=== PATIENT | female | born 1940 | race Caucasian/White ===

== ENCOUNTER 2017-05-01 12:58 | Inpatient (IN) ==
[2017-05-01] MEDS ORDERED: Naloxone 0.4 MG/ML INJ IVP PRN (16:01)
[2017-05-01] MEDS ORDERED: Dextrose Gel 15 GM PO PRN ×2 (16:06)
[2017-05-01] MEDS ORDERED: D5% in Water 1,000 ML IVC PRN (16:06)
[2017-05-01] MEDS ORDERED: *HR* Dextrose 50 % in Water (Syg) 50 ML SYRINGE IVP PRN (16:06)
--- NOTE | 2017-05-01 16:14 | Internal Med History&Physical ---
Date of Encounter: 05/01/17 Time of Encounter: 16:14 Assessment and Plan (1) Metabolic encephalopathy Current visit: Yes Status: Acute Patient presented with increased confusion was likely secondary to urinary tract infection. Urine sent for culture and blood cultures have been drawn no electrolyte abnormalities ABG stable we will continue with oxygen as needed to maintain SPO2 greater than 92% 2 we will continue with antibiotics 3 obtain ABG lactate ammonia level CT of head is negative for any intracranial abnormalities 4 we will monitor neuro status 5 patient is to undergo dialysis today (2) UTI (urinary tract infection) Current visit: No Status: Acute Patient has been experiencing confusion and past 24 hours urinalysis obtained which did reveal UTI patient had been on cefepime for approximately 4 days for possible infection to right stump. We will stop cefepime will start on vancomycin as well as meropenem Urine culture blood cultures have been sent Qualifiers: Urinary tract infection type: site unspecified Hematuria presence: with hematuria Qualified Code(s): N39.0 - Urinary tract infection, site not specified; R31.9 - Hematuria, unspecified (3) Type 2 diabetes mellitus Current visit: No Status: Acute Patient is presently nothing by mouth due to altered mental status. Accu-Cheks every 6 hours with sliding scale coverage Qualifiers: Diabetes mellitus complication status: with kidney complications Diabetes mellitus complication detail: with chronic kidney disease Diabetes mellitus manager long term care insulin use: with manager long term care use Chronic kidney disease stage: on chronic dialysis Qualified Code(s): E11.22 - Type 2 diabetes mellitus with diabetic chronic kidney disease; N18.6 - End stage renal disease; Z79.4 - residential (current) use of insulin; Z99.2 - Dependence on renal dialysis (4) Atrial fibrillation Current visit: No Status: Acute Patient is in atrial fibrillation. Heart rate is greater than 100 this time. We will give her IV fluid bolus 250 x1 continue with ASA Qualifiers: Atrial fibrillation type: chronic Qualified Code(s): I48.2 - Chronic atrial fibrillation (5) End stage renal disease on dialysis Current visit: Yes Status: Acute Patient receives dialysis Monday she is not receive her dialysis today. Consulted nephrology patient to get dialysis today as well as tomorrow We will monitor intake and output daily weights We will avoid nephrotoxins (6) DVT prophylaxis Current visit: Yes Status: Acute Heparin subcutaneous Internal Medicine - H&P: HPI Chief complaint: AMS Admitted From: Emergency Dept Plans for Post Hospital Care: Home History of present illness: Ms. Barrientos is a 76 year old female PMH of ESRD AFIB CHF CAD DM GERD HTN HI Information obtained from ho is at bedside dt to patent altered mental state. The patient has been receiving cefepime for a possible infection to R stump incision. She started ATB last . She has had no fever chills , she has had a decrease appetite. This am the states the patient was confused, unaware of surroundings and attempting to get out of the bed . She is unable to walk dt recent amputation. The became concern and called squad. She was taken to to [facility] for evaluation. IN the ED labwork revealed no leukocytosis, BUN 15 creatinine 7.78 bicarb 18. CXR with vascular congestion.Head CT negative Urine obtained which sample was thick white purulent drainage . Urinalysis revealed large amount of blood and leuk esterase. urine sent for culture blood culture obtained , given vancomycin Transferred to this facility for further treatment. Presently the patient is moaning does not respond verbal stimuli. Lung sounds are clear, heart sounds irreg S1S2 no rubs click or gallops noted. Abd soft nontender, R stump with incision well approx, R distal end red, with small amount clear drainage. She is hemodynamically stable at this time I reviewed this case with DR Felder who agrees with plan Past Med Surg Social Fam HX - Past Medical History Medical history: arthritis, atrial fibrillation, cardiomyopathy, CHF, coronary artery disease, diabetes, dialysis, GERD, hyperlipidemia, migraine, myocardial infarction, peripheral artery disease, renal disease, other Psychiatric history: anxiety - Past Surgical History Surgical History: angioplasty/stent, appendectomy, cholecystectomy, hysterectomy , orthopedic, other, other - Social History Smoking Status: Never smoker Smokeless Tobacco Status: No Alcohol use: none Drug use: none - Family History Father Living Status: Cause of : heart disease Mother Living Status: Cause of : esophageal Cancer Internal Medicine - H&P: Meds Aspirin 325 mg PO DAILY 08/17/15 [History] Cephalexin [Keflex] 250 mg PO DAILY 08/17/15 [History] Clopidogrel [Plavix] 75 mg PO DAILY 08/17/15 [History] Gabapentin [Neurontin] 300 mg PO TID 08/17/15 [History] Pravastatin Sodium [Pravachol] 40 mg PO HS 08/17/15 [History] Buspirone HCl [Buspar] 10 mg PO BID 05/01/17 [History] Cefepime HCl/Dextrose, Iso-Osm [Cefepime 2 gm Injection] 2 gm IV DAILY 05/01/17 [History] Cholecalciferol (D-3) [Vitamin D] 2,000 unit PO DAILY 05/01/17 [History] Droxidopa [Northera] 600 mg PO TID 05/01/17 [History] FentaNYL PATCH [Duragesic] 12 mcg TD Q72H 05/01/17 [History] FentaNYL PATCH [Duragesic] 25 mcg TD Q72H 05/01/17 [History] HYDROcodone/Acet 5/325 mg [Juniata 5-325 mg] 1 tab PO TID PRN 05/01/17 [History] Insulin ASPART [NovoLOG] 3 - 12 unit SQ TIDWM 05/01/17 [History] Insulin Aspart Prot/Insuln Asp [Novolog Mix 70-30 Vial] 30 - 40 unit SQ QAM AND QHS 05/01/17 [History] L. Acidophilus/Pectin, Salley [Acidophilus Probiotic Capsule] 1 each PO DAILY [History] Pantoprazole Sodium [Protonix] 40 mg PO DAILY 05/01/17 [History] Zinc Sulfate [Orazinc] 110 mg PO DAILY 05/01/17 [History] Allergies doxycycline Allergy (Verified 05/01/17 09:06) Hives levofloxacin [From Levaquin] Allergy (Verified 05/01/17 09:06) Swelling of Lip/Tongue/Throat prednisone Allergy (Verified 05/01/17 09:06) See Comments made her cold/ and made her sweat acetaminophen [From Percocet] Adverse Reaction (Verified 04/17/17 08:32) Vomiting azithromycin [From Zithromax Z-Henrry] Adverse Reaction (Verified 05/01/17 09:06) Vomiting Oxycodone [From Percocet] Adverse Reaction (Verified 05/01/17 09:06) Vomiting phenazopyridine [From Pyridium] Adverse Reaction (Verified 05/01/17 09:06) Rash Ybmdhuk-Ckw-Ite Reductase Inhibitor [Statins] Adverse Reaction (Verified 09:06) Back Pain ROS unobtainable: due to mental status All Systems PM: A 10-system review of systems was performed and is negative for pertinent findings except as documented above in the HPI. - Constitutional Vitals: Temp Pulse Resp BP Pulse Ox 98.4 F 113 19 100/75 93 05/01/17 15:13 05/01/17 15:13 05/01/17 15:13 05/01/17 15:13 05/01/17 15:13 General appearance: Present: A&O X 0 - Head Head exam: Present: atraumatic, normocephalic - Eye Eye exam: Present: PERRL, conjuntiva pink, sclera anicteric Pupils: Present: PERRL - Neck Neck exam general surgery: Present: supple, trachea midline. Absent: lymphadenopathy - Respiratory Respiratory exam: Present: CTAB. Absent: accessory muscle use, rales, rhonchi, wheezes - Cardiovascular Cardiovascular exam: Present: RRR, +S1, +S2. Absent: diastolic murmur, gallop, rubs, systolic murmur - GI/Abdominal GI/Abdominal exam: Present: normal bowel sounds, soft, no peritoneal signs. Absent: distended, tenderness - Extremities Exam Extremities exam: Present: warm, radial pulses palpable and symetrical. Absent : calf tenderness, cyanotic, pedal edema - Neurological Exam Neurological exam: Present: CN II-XII intact, oriented X3, no focal deficits. Absent: pronater drift, facial droop, speech deficit - Skin Skin exam: Present: dry, intact Internal Med - H&P Results - Labs Labs: Lab work per psych ER CBC WBC 9.8 hemoglobin 10.6 hematocrit 34.8 platelets 185 Chemistry sodium 136 potassium 4.3 chloride 95 bicarbonate 18 BUN 54 creatinine 7.78 glucose 133
[2017-05-01] MEDS ORDERED: Vancomycin 750 MG in D5% in Water 250 ML IVPB ONE (17:00)
--- NOTE | 2017-05-01 17:14 | Event Note ---
Date of Encounter: 05/01/17 Time of Encounter: 17:13 Patient seen briefly for dialysis needs. Patient in with UTI and AMS. Will perform HD today and tomorrow. No UF today Full consult to follow.
[2017-05-01] MEDS ORDERED: 0.9 % Sodium Chloride 250 ML IVC PRN (17:34)
[2017-05-01] MEDS ORDERED: *HR* Heparin 10,000 UNIT/10 ML VIAL IV PRN (17:34)
[2017-05-01] MEDS: *HR* Heparin 5,000 UNIT/ML VIAL SQ SCH (17:44)
[2017-05-01] MEDS ORDERED: 0.9 % Sodium Chloride 1,000 ML PRIME SCH (17:45)
[2017-05-01 18:27] LABS: ABG Base Excess -2.9 mEq/L (-2.0 to 3.0); ABG HCO3 21.9 mEQ/L (21-27); ABG Oxygen Saturation 94 % (95-98); ABG PCO2 37 mmHg (35-45); ABG PH 7.38 pH Units (7.32-7.45); ABG PO2 74 mmHg (85-104); Blood Gas FiO2 21 %
[2017-05-01] MEDS ORDERED: Meropenem 500 MG in 0.9 % Sodium Chloride Mini Bag 100 ML IVPB SCH (18:30)
[2017-05-01 18:53] LABS: Hepatitis B Surface Antigen Nonreactive (Nonreactive)
[2017-05-01 19:01] LABS: Hepatitis B Surface Antibody 0.29 mIU/mL
[2017-05-01] MEDS ORDERED: 0.9 % Sodium Chloride 2,000 ML ONE (19:16)
[2017-05-01] MEDS: Insulin LISPRO 300 UNITS/3 ML VIAL SQ SCH (19:43)
[2017-05-01] MEDS ORDERED: NON-FORMULARY MEDICATION 1 EACH EACH (Cefepime Hcl/Dextrose, Iso-Osm [Cefepime 2 Gm Inject IV SCH (22:00)
[2017-05-01] MEDS ORDERED: Cefepime HCl 2,000 MG in D5% in Water (Mini-Bag+) 100 ML IVPB SCH (23:00)
[2017-05-02] MEDS: Insulin LISPRO 300 UNITS/3 ML VIAL SQ SCH ×3 (00:07→12:42)
[2017-05-02 04:27] LABS: Basophils % 0.4 %; Eosinophils # 0.2 K/mcL (0.0-0.6); Eosinophils % 2.2 %; Hematocrit 28.7 % (35.3-44.9); Hemoglobin 8.8 g/dL (11.5-15.4); Immature Granulocytes % 0.4 % (0-4); Lymphocytes # 0.6 K/mcL (0.6-4.6); Lymphocytes % 6.6 %; Mean Corpuscular HGB Conc 30.7 g/dL (31.6-35.5); Mean Corpuscular Hemoglobin 30.8 pg (28.0-33.3); Mean Corpuscular Volume 100.3 fL (83.0-100.0); Mean Platelet Volume 11.6 fL (9.4-12.4); Monocytes # 0.9 K/mcL (0.0-1.3); Monocytes % 10.3 %; Neutrophils # 6.7 K/mcL (1.6-8.9); Platelet Count 170 K/mcL (140-400); Red Blood Count 2.86 M/mcL (3.82-4.97); Red Cell Distribution Width 17.6 % (11.5-14.5); Segmented Neutrophils % 80.1 %
[2017-05-02 04:42] LABS: Calcium 8.7 mg/dL (8.6-10.8); Potassium 4.1 mEq/L (3.5-4.5)
[2017-05-02] MEDS: *HR* Heparin 5,000 UNIT/ML VIAL SQ SCH ×2 (06:47→18:07)
[2017-05-02] MEDS ORDERED: 0.9 % Sodium Chloride 250 ML IVC PRN (08:08)
[2017-05-02] MEDS ORDERED: *HR* Heparin 10,000 UNIT/10 ML VIAL IV PRN (08:08)
[2017-05-02] MEDS ORDERED: Cefepime HCl 1,000 MG in D5% in Water (Mini-Bag+) 100 ML IVPB ONE (08:24)
[2017-05-02] MEDS ORDERED: Vancomycin (wt based) 1,000 MG VIAL IVPB SCH (09:00)
--- NOTE | 2017-05-02 09:57 | Nephrology Progress Note ---
Date of Encounter: 05/02/17 Time of Encounter: 09:54 - Assessment and Plan (1) End stage renal disease on dialysis Current Visit: Yes Status: Acute Getting HD today Plan for HD again tomorrow Strict I/Os Avoid nephrotoxins if possible (2) Metabolic encephalopathy Current Visit: Yes Status: Acute per primary team (3) UTI (urinary tract infection) Current Visit: No Status: Acute per primary team Qualifiers: Urinary tract infection type: site unspecified Hematuria presence: with hematuria Qualified Code(s): N39.0 - Urinary tract infection, site not specified; R31.9 - Hematuria, unspecified Subjective Principal diagnosis: ESRD on dialysis, AMS Interval history: Patient seen and examined in dialysis. Doesn't open eyes or respond to my voice ; frequent jerking of arms and upper body. Objective - Vital Signs Vital signs: Vital Signs Temp Pulse Resp BP Pulse Ox 05/02/17 09:15 148/74 05/02/17 09:00 140/52 05/02/17 08:45 114/47 05/02/17 08:30 98/43 05/02/17 08:15 101/56 05/02/17 08:00 99/43 05/02/17 07:45 101.6 F H 18 109/93 05/02/17 04:21 99.1 F 100 18 100 05/01/17 23:39 98.2 F 78 18 92/58 96 05/01/17 20:46 98.3 F 20 124/45 05/01/17 20:45 116/61 05/01/17 20:30 118/42 05/01/17 20:15 133/33 05/01/17 20:00 130/63 05/01/17 19:45 149/59 05/01/17 19:30 135/44 05/01/17 19:15 134/38 05/01/17 19:00 159/60 05/01/17 18:45 98.3 F 20 145/51 05/01/17 17:16 98.3 F 120 22 130/78 100 05/01/17 15:13 98.4 F 113 19 100/75 93 Intake and Output 05/01/17 05/02/17 05/02/17 23:59 07:59 15:59 Intake Total 850 / 850 700 / 700 Output Total 600 / 600 Balance 250 / 250 700 / 700 Intake: IV Fluids 250 / 250 100 / 100 Maxipime 2,000 MG In 100 / 100 Dextrose 5% (Minibag+) 100 ML 100 ML @ 200 mls/ hr IVPB DAILY [facility] Rx#: [id number] Vancocin 750 MG In 250 / 250 Dextrose 5% 250 ML @ 166. 667 mls/hr IVPB ONCE ONE Rx#:[id number] Oral 0 / 0 0 / 0 Intake, Rinseback and 600 / 600 600 / 600 Flushes Output: Urine 0 / 0 Total Dialysis (HD) 600 / 600 Output Other: Stool Size Small Stool Consistency soft Stool Color Brown # Bowel Movement Diapers 1 Weight 120.4 kg Blood Glucose* 173 141 Hemodialysis Net Fluid 0 0 964 Removed (mL) - General Appearance General appearance: Present: obese, chronically ill EENT: Present: ATNC Neck: Present: supple Respiratory: Present: clear (decreased throughout) Cardiology: Present: edema, normal S1, normal S2 Dialysis Vascular Access: Venous Catheter Gastrointestinal: Present: no tenderness, obese Integumentary: Present: warm and dry Neurologic: Present: obtunded - Lab 05/02/17 04:14 05/02/17 04:14 Most recent lab results ABG pH 7.38 pH Units (7.32-7.45) 05/01/17 18:17 ABG pCO2 37 mmHg (35-45) 05/01/17 18:17 ABG pO2 74 mmHg (85-104) L 05/01/17 18:17 ABG HCO3 21.9 mEQ/L (21-27) 05/01/17 18:17 ABG O2 Saturation 94 % (95-98) L 05/01/17 18:17 Calcium 8.7 mg/dL (8.6-10.8) 05/02/17 04:14 Magnesium 2.0 mg/dL (1.6-2.6) 05/02/17 04:14 Consult Discharge Plan - Plan Referrals: NO,PCP [Primary Care Provider] - (patient will like go to ECF)
[2017-05-02] MEDS ORDERED: 0.9 % Sodium Chloride 2,000 ML ONE (10:10)
[2017-05-02] MEDS: Pantoprazole 40 MG VIAL IVP SCH (11:21)
[2017-05-02] MEDS ORDERED: Vancomycin 1,500 MG in D5% in Water 250 ML IVPB ONE (13:55)
--- NOTE | 2017-05-02 14:19 | Internal Med Progress Note ---
Date of Encounter: 05/02/17 Time of Encounter: 09:00 - Assessment and plan (1) UTI (urinary tract infection) Current Visit: No Status: Acute Assessment and plan: Patient has chronic UTI. Urine analysis suggests a UTI. However, urine culture negative, possibly due to patient is on antibiotics. - Will continue Vanco and cefepime treatment. - F/U blood culture (send in [facility]) Qualifiers: Urinary tract infection type: site unspecified Hematuria presence: with hematuria Qualified Code(s): N39.0 - Urinary tract infection, site not specified; R31.9 - Hematuria, unspecified (2) Atrial fibrillation Current Visit: No Status: Acute Assessment and plan: Rate is generally controlled. Pt is on high dose ASA and plavix for CVA prophylaxis. On hold now because of nothing by mouth Qualifiers: Atrial fibrillation type: chronic Qualified Code(s): I48.2 - Chronic atrial fibrillation (3) Metabolic encephalopathy Current Visit: Yes Status: Acute Assessment and plan: Probably due to severe UTI as the patient's mentioned that she has similar problem last time with UTI. - We will continue antibiotic. - Follow up blood culture. - Continue supportive treatment. - CT abd to r/o stone or obstruction Patient is at high risk because of acute onset altered mental status. She is also on vancomycin, need close monitoring (4) DVT prophylaxis Current Visit: Yes Status: Acute (5) End stage renal disease on dialysis Current Visit: Yes Status: Acute Assessment and plan: On HD, nephrology is on case - Time Spent With Patient Greater than 35 minutes - Subjective Interval history: Patient is 76-year-old female admitted for altered mental status. Her past medical history is significant for end-stage renal disease on hemodialysis, chronic UTI on maintainance dose of Keflex, A Fib, CHF, CAD, DM, HTN. Patient was seen and examined. She is still confused, occasionally opening eyes , not talking, had a fever today with temperature 101.6. Per patient's , she is more calm down today. Blood pressure and heart rate acceptable. Patient's also mentioned that she has similar mental status changes due to UTI previously. Will continue vanco and cefepime treatment. Lactate and ammonia level are within normal limits. Since patient's altered mental status, she is at high risk for aspiration, intubation option discussed with patient's . Her said she does not want to be intubated. Patient's agree to put a code status as DNR/ DNI and said this is pt's wishes. Patient is very sick with multiple chronic comorbidities, prognosis is guarded. - Constitutional Vitals: Temp Pulse Resp BP Pulse Ox 101.6 F H 100 18 156/83 100 05/02/17 10:25 05/02/17 04:21 05/02/17 10:25 05/02/17 10:25 05/02/17 04:21 General appearance: Present: A&O X 0 - Head Head exam: Present: atraumatic, normocephalic - Eye Eye exam: Present: PERRL, conjuntiva pink, sclera anicteric Pupils: Present: PERRL - Neck Neck exam general surgery: Present: supple, trachea midline. Absent: lymphadenopathy - Respiratory Respiratory exam: Present: CTAB. Absent: accessory muscle use, rales, rhonchi, wheezes - Cardiovascular Cardiovascular exam: Present: RRR, +S1, +S2. Absent: diastolic murmur, gallop, rubs, systolic murmur - GI/Abdominal GI/Abdominal exam: Present: normal bowel sounds, soft, no peritoneal signs. Absent: distended, tenderness - Extremities Exam Extremities exam: Present: warm, radial pulses palpable and symetrical. Absent : calf tenderness, cyanotic, pedal edema Additional comments: Rt s/p BKA - Neurological Exam Neurological exam: Present: CN II-XII intact, oriented X3, no focal deficits. Absent: pronater drift, facial droop, speech deficit - Skin Skin exam: Present: dry, intact Internal Medicine: Result - Labs CBC & Chem 7: 05/02/17 04:14 05/02/17 04:14 Labs: Short CBC 05/02/17 Range/Units 04:14 WBC 8.4 (4.3-11.1) K/mcL Hgb 8.8 L D (11.5-15.4) g/dL Hct 28.7 L (35.3-44.9) % Plt Count 170 (140-400) K/mcL Neutrophils # 6.7 (1.6-8.9) K/mcL BMP 05/02/17 04:14 Sodium 135 L Potassium 4.1 Chloride 98 Carbon Dioxide 22 BUN 43 H D Creatinine 6.52 H Glucose 192 H Calcium 8.7 Cardiac Enzymes 05/01/17 05/02/17 Range/Units 17:55 01:01 Troponin I 0.05 H* 0.04 H* (0-0.03) ng/mL - ABG Interpretation ABG results: ABG ABG pH 7.38 pH Units (7.32-7.45) 05/01/17 18:17 ABG pCO2 37 mmHg (35-45) 05/01/17 18:17 ABG pO2 74 mmHg (85-104) L 05/01/17 18:17 ABG O2 Saturation 94 % (95-98) L 05/01/17 18:17 Consult Discharge Plan - Plan Referrals: NO,PCP [Primary Care Provider] - (patient will like go to [facility])
[2017-05-02] MEDS ORDERED: 0.9 % Sodium Chloride 1,000 ML IVC SCH (15:30)
[2017-05-02] MEDS: Cefepime HCl 1,000 MG in D5% in Water (Mini-Bag+) 100 ML IVPB SCH (17:41)
[2017-05-02] MEDS: INSULIN ASPART SQ SCH (17:54)
[2017-05-02] MEDS ORDERED: Patient Taking Own Medication 1 EACH SQ SCH (18:00)
[2017-05-03] MEDS: INSULIN ASPART SQ SCH ×4 (01:03→17:14)
[2017-05-03 04:46] LABS: Basophils % 0.6 %; Eosinophils # 0.2 K/mcL (0.0-0.6); Eosinophils % 2.5 %; Hematocrit 32.4 % (35.3-44.9); Hemoglobin 9.5 g/dL (11.5-15.4); Immature Granulocytes % 0.3 % (0-4); Lymphocytes # 0.8 K/mcL (0.6-4.6); Lymphocytes % 12.4 %; Mean Corpuscular HGB Conc 29.3 g/dL (31.6-35.5); Mean Corpuscular Hemoglobin 30.4 pg (28.0-33.3); Mean Corpuscular Volume 103.5 fL (83.0-100.0); Mean Platelet Volume 11.8 fL (9.4-12.4); Monocytes % 14.9 %; Neutrophils # 4.5 K/mcL (1.6-8.9); Platelet Count 165 K/mcL (140-400); Red Blood Count 3.13 M/mcL (3.82-4.97); Red Cell Distribution Width 17.6 % (11.5-14.5); Segmented Neutrophils % 69.3 %
[2017-05-03 05:06] LABS: Calcium 9.3 mg/dL (8.6-10.8); Potassium 4.1 mEq/L (3.5-4.5)
[2017-05-03] MEDS: *HR* Heparin 5,000 UNIT/ML VIAL SQ SCH ×2 (07:02→16:58)
[2017-05-03] MEDS: Pantoprazole 40 MG VIAL IVP SCH (07:55)
[2017-05-03] MEDS ORDERED: *HR* Heparin 10,000 UNIT/10 ML VIAL IV PRN (08:24)
[2017-05-03] MEDS ORDERED: 0.9 % Sodium Chloride 250 ML IVC PRN (08:24)
--- NOTE | 2017-05-03 10:11 | Nephrology Progress Note ---
Date of Encounter: 05/03/17 Time of Encounter: 10:09 - Assessment and Plan (1) End stage renal disease on dialysis Current Visit: Yes Status: Acute HD MWF. She seems to be tolerating HD well via a right IJ tunneled catheter. Will continue HD per home prescription and as needed. Renal dose medications. Renal diet. (2) UTI (urinary tract infection) Current Visit: No Status: Acute Patient on vancomycin and cefepime. Management per primary team. Qualifiers: Urinary tract infection type: site unspecified Hematuria presence: with hematuria Qualified Code(s): N39.0 - Urinary tract infection, site not specified; R31.9 - Hematuria, unspecified (3) Anemia Current Visit: Yes Status: Acute Check iron stores. May need to resume kale. Monitor for bleeding. Qualifiers: Qualified Code(s): D64.9 - Anemia, unspecified (4) Metabolic encephalopathy Current Visit: Yes Status: Acute Attributed to UTI. Monitor for improvement. Subjective Principal diagnosis: ESRD on dialysis, AMS Interval history: Patient seen on dialysis. She is asleep and tolerating dialysis. Objective - Vital Signs Vital signs: Vital Signs Temp Pulse Resp BP Pulse Ox 05/03/17 06:57 98.6 F 102 17 101/46 91 05/03/17 05:58 99.5 F 102 16 95 05/02/17 23:28 98.7 F 102 16 102/45 92 05/02/17 19:46 98.4 F 102 18 113/54 92 05/02/17 16:49 98.7 F 72 18 147/74 92 05/02/17 10:25 101.6 F H 18 156/83 05/02/17 10:15 127/73 Intake and Output 05/02/17 05/03/17 05/03/17 23:59 07:59 15:59 Intake Total 100 / 100 0 / 0 Output Total 0 / 0 Balance 100 / 100 0 / 0 Intake: IV Fluids 100 / 100 Maxipime 1,000 MG In 100 / 100 Dextrose 5% (Minibag+) 100 ML 100 ML @ 200 mls/ hr IVPB Q24H [facility] Rx#: [id number] Oral 0 / 0 Output: Catheter 0 / 0 Other: Stool Size Smear Stool Color Brown # Bowel Movement Diapers 1 Blood Glucose* 147 157 - General Appearance General appearance: Present: well-developed, well-nourished, obese EENT: Present: ATNC Respiratory: Present: clear Cardiology: Present: edema (trace edema), regular rate Gastrointestinal: Present: no tenderness Integumentary: Present: warm and dry - Lab 05/03/17 04:11 05/03/17 04:11 Most recent lab results ABG pH 7.38 pH Units (7.32-7.45) 05/01/17 18:17 ABG pCO2 37 mmHg (35-45) 05/01/17 18:17 ABG pO2 74 mmHg (85-104) L 05/01/17 18:17 ABG HCO3 21.9 mEQ/L (21-27) 05/01/17 18:17 ABG O2 Saturation 94 % (95-98) L 05/01/17 18:17 Calcium 9.3 mg/dL (8.6-10.8) 05/03/17 04:11 Magnesium 2.0 mg/dL (1.6-2.6) 05/02/17 04:14 Consult Discharge Plan - Plan Referrals: NO,PCP [Primary Care Provider] - (patient will like go to ECF)
[2017-05-03] MEDS ORDERED: 0.9 % Sodium Chloride 500 ML ONE ×2 (13:11→15:12)
[2017-05-03] MEDS: Ondansetron 4 MG/2 ML VIAL IVP PRN (13:42)
[2017-05-03] MEDS ORDERED: *HR* Promethazine 25 MG/ML VIAL IVP PRN (13:52)
[2017-05-03] MEDS ORDERED: 0.9 % Sodium Chloride 250 ML IVC ONE ×2 (15:06→16:42)
--- NOTE | 2017-05-03 15:30 | Internal Med Progress Note ---
Date of Encounter: 05/03/17 Time of Encounter: 10:00 - Assessment and plan (1) UTI (urinary tract infection) Current Visit: No Status: Acute Assessment and plan: Patient has chronic UTI. Urine analysis suggests a UTI. Per family, purulent urine has been drained upon Bruner insertion. However, urine culture negative, possibly due to patient is on antibiotics (pt started cefepime since last ). - Will continue Vanco and cefepime treatment. - Blood culture also shows negative (Preliminary result). Qualifiers: Urinary tract infection type: site unspecified Hematuria presence: with hematuria Qualified Code(s): N39.0 - Urinary tract infection, site not specified; R31.9 - Hematuria, unspecified (2) Atrial fibrillation Current Visit: No Status: Acute Assessment and plan: Rate is slightly get up to 120-140 today. Pt is on high dose ASA and plavix for CVA prophylaxis. will give IVF to optimize volume status. No BB or cardizem now b/o lower side BP. Cont closely monitoring. Qualifiers: Atrial fibrillation type: chronic Qualified Code(s): I48.2 - Chronic atrial fibrillation (3) Metabolic encephalopathy Current Visit: Yes Status: Acute Assessment and plan: Probably due to severe UTI as the patient's mentioned that she has similar problem last time with UTI. - We will continue antibiotic. - Continue supportive treatment. - CT abd shows no kidney/ureter stone or obstruction - Will obtain EEG to r/o seizure - Repeat CT head negative - Will consult neurology - May start tube feeding through NG tube. Patient is at high risk because of acute onset altered mental status. She is also on vancomycin, need close monitoring (4) DVT prophylaxis Current Visit: Yes Status: Acute Assessment and plan: Heparin sc (5) End stage renal disease on dialysis Current Visit: Yes Status: Acute Assessment and plan: On HD, nephrology is on case - Time Spent With Patient Greater than 35 minutes - Subjective Interval history: Patient is 76-year-old female admitted for altered mental status. Her past medical history is significant for end-stage renal disease on hemodialysis, chronic UTI on maintainance dose of Keflex, A Fib, CHF, CAD, DM, HTN. Patient was seen and examined. She is still confused, occasionally opening eyes , not talking. Can swallow secretions and seems has intact gag reflex. Since mental status not improve although treatment, will obtain EEG to r/o seizure. Will consult neurology. Repeat CT head negative. D/W family, will start NG tube feeding to maintain nutrition and administrate po medications. Pt is still at high risk b/o acute AMS. Prognosis is guarding. - Constitutional Vitals: Temp Pulse Resp BP Pulse Ox 98.0 F 140 19 86/47 100 05/03/17 12:56 05/03/17 15:10 05/03/17 15:10 05/03/17 15:10 05/03/17 12:56 General appearance: Present: A&O X 0 - Head Head exam: Present: atraumatic, normocephalic - Eye Eye exam: Present: PERRL, conjuntiva pink, sclera anicteric Pupils: Present: PERRL - Neck Neck exam general surgery: Present: supple, trachea midline. Absent: lymphadenopathy - Respiratory Respiratory exam: Present: CTAB. Absent: accessory muscle use, rales, rhonchi, wheezes - Cardiovascular Cardiovascular exam: Present: RRR, +S1, +S2. Absent: diastolic murmur, gallop, rubs, systolic murmur - GI/Abdominal GI/Abdominal exam: Present: normal bowel sounds, soft, no peritoneal signs. Absent: distended, tenderness - Extremities Exam Extremities exam: Present: warm, radial pulses palpable and symetrical. Absent : calf tenderness, cyanotic, pedal edema Additional comments: Right leg s/p BKA - Neurological Exam Neurological exam: Present: CN II-XII intact, no focal deficits (Can move four limbs). Absent: facial droop - Skin Skin exam: Present: dry, intact Internal Medicine: Result - Labs CBC & Chem 7: 05/03/17 04:11 05/03/17 04:11 Labs: Short CBC 05/03/17 Range/Units 04:11 WBC 6.5 (4.3-11.1) K/mcL Hgb 9.5 L (11.5-15.4) g/dL Hct 32.4 L (35.3-44.9) % Plt Count 165 (140-400) K/mcL Neutrophils # 4.5 (1.6-8.9) K/mcL BMP 05/03/17 04:11 Sodium 136 Potassium 4.1 Chloride 99 Carbon Dioxide 22 BUN 29 H D Creatinine 5.20 H Glucose 162 H Calcium 9.3 - ABG Interpretation ABG results: ABG ABG pH 7.38 pH Units (7.32-7.45) 05/01/17 18:17 ABG pCO2 37 mmHg (35-45) 05/01/17 18:17 ABG pO2 74 mmHg (85-104) L 05/01/17 18:17 ABG O2 Saturation 94 % (95-98) L 05/01/17 18:17 - Impressions Impressions Abdomen/Pelvis CT 05/02/17 14:45 IMPRESSION: Evaluation is limited by motion artifact. No obstructing renal or ureteral stone. Small right pleural effusion and patchy opacity in the lung bases, similar to previous exam. D/ / Deepika Singh MD / Deepika Singh MD Interpreting Provider: Deepika Singh MD Head CT 05/03/17 11:33 IMPRESSION: 1. Stable CT scan of the brain with no acute intracranial abnormality. D/ / Adalberto Ibarra MD / Adalberto Ibarra MD Interpreting Provider: Adalberto Ibarra MD Consult Discharge Plan - Plan Referrals: NO,PCP [Primary Care Provider] - (patient will like go to [facility])
[2017-05-03] MEDS: Cefepime HCl 1,000 MG in D5% in Water (Mini-Bag+) 100 ML IVPB SCH (15:59)
[2017-05-03] MEDS: 0.9 % Sodium Chloride 1,000 ML IVC SCH (16:07)
--- NOTE | 2017-05-03 18:25 | Pulmonology Consult Note ---
Date of Encounter: 05/03/17 Time of Encounter: 18:05 Assessment and Plan (1) CHF (congestive heart failure) Current Visit: Yes Status: Acute Neuro: Acute altered mental status of unclear cause. No evidence of acute infection. No history of liver disease or elevated ammonia. End-stage renal disease with hemodialysis but no evidence of uremia. CT head showed no acute intracranial abnormalities. Neurology has been consulted by internal medicine service. Cardiovascular: History of cardiomyopathy. Exam shows significant edema in all extremities. Bedside ultrasound obtained which suggested LV hypokinesis. Suspect some degree of congestive heart failure. Echo ordered for tomorrow. Plan per discussion with nephrology to placed on HD circuit again with goal of further volume removal. Primary reason for patient transferred ICU was for hypotension. Blood pressure cuff was refitted for patient's arm and normal blood pressure was obtained. This is compared to blood pressure obtained around the wrist as was done on board. Repeat blood pressure of wrist showed hypertension which is likely spurious but consistent with prior readings. At this point, patient appears to have normal blood pressure and shows no evidence of poor perfusion. No plan for further fluid boluses. Pulmonary: Review of CT abdomen is suggestive of pulmonary edema with small effusions. Otherwise patient on sliding well and in no respiratory distress. Nephro: End-stage renal disease with hemodialysis dependence. Bruner in place with scant urine in the bag. Underwent intermittent hemodialysis today. No significant I abnormalities at this point. Plan per discussion with nephrology for volume removal on HD tomorrow. GI: Report of nausea from from internal medicine service and patient did receive some Phenergan. Plan keep patient nothing by mouth due to mental status ID: Sterile pyuria from UA obtained in [facility] ED. No leukocytosis patient is afebrile. No clear source of infection at this time. Patient is currently receiving empiric cefepime and vancomycin. These will likely be discontinued but will hold delay decision for now pending elucidation of other issues. HO: Chronic anemia related to this EKG. No indication for transfusion at this time. Endocrine: History of type 2 diabetes. Continue with sliding scale. Musculoskeletal: Status post right lower extremity amputation. Also noted to have stage II sacral decubitus ulcer. Disposition: Patient is currently in ICU overnight. Qualifiers: Congestive heart failure type: unspecified congestive heart failure type Congestive heart failure chronicity: acute on chronic Qualified Code(s): I50.9 - Heart failure, unspecified (2) End stage renal disease on dialysis Current Visit: Yes Status: Chronic (3) Metabolic encephalopathy Current Visit: Yes Status: Acute (4) Atrial fibrillation Current Visit: No Status: Chronic Qualifiers: Atrial fibrillation type: chronic Qualified Code(s): I48.2 - Chronic atrial fibrillation (5) Type 2 diabetes mellitus Current Visit: No Status: Acute Qualifiers: Diabetes mellitus complication status: with kidney complications Diabetes mellitus complication detail: with chronic kidney disease Diabetes mellitus long-term insulin use: with rodent exterminator use Chronic kidney disease stage: on chronic dialysis Qualified Code(s): E11.22 - Type 2 diabetes mellitus with diabetic chronic kidney disease; N18.6 - End stage renal disease; Z79.4 - [facility] (current) use of insulin; Z99.2 - Dependence on renal dialysis History of Present Illness Consult date: 05/03/17 Requesting physician: Thomas Ramirez Reason for consult: other (Altered mental status) Chief complaint: Altered mentation History of present illness: 76-year-old female transferred to ICU by primary internal medicine service for persistent hypotension following dialysis today. Patient also has altered mentation since her admission on April 29. Was initially evaluated in [facility] ER for altered mental status. Patient is end-stage renal disease with hemodialysis dependence and an uric, however UA was obtained at [place] which showed pyuria. This is the presumed cause of patient's altered mentation she was transferred to this facility. In spite of broad-spectrum antibiotics, patient's mental status is failed to improve. Today patient underwent routine hemodialysis with approximately 3.6 L net fluid removal. Afterwards patient was noted to have persistent recordings of hypertension while in the internal medicine service. Patient received multiple boluses of crystalloid without any change. Patient remains minimally interactive. He is unable to contribute any information to the history of present illness. CT head has been obtained which was unremarkable. EEG has also been obtained which is pending interpretation by neurology. Past Med Surg Social Fam HX - Past Medical History Medical history: arthritis, atrial fibrillation, cardiomyopathy, CHF, coronary artery disease, diabetes, dialysis, GERD, hyperlipidemia, migraine, myocardial infarction, peripheral artery disease, renal disease, other Psychiatric history: anxiety - Past Surgical History Surgical History: angioplasty/stent, appendectomy, cholecystectomy, hysterectomy , orthopedic, other, other - Social History Smoking Status: Never smoker Smokeless Tobacco Status: No Alcohol use: none Drug use: none - Family History Father Living Status: Cause of : heart disease Mother Living Status: Cause of : esophageal Cancer Medications and Allergies Aspirin 325 mg PO DAILY 08/17/15 [History] Cephalexin [Keflex] 250 mg PO DAILY 08/17/15 [History] Clopidogrel [Plavix] 75 mg PO DAILY 08/17/15 [History] Gabapentin [Neurontin] 300 mg PO TID 08/17/15 [History] Pravastatin Sodium [Pravachol] 40 mg PO HS 08/17/15 [History] Buspirone HCl [Buspar] 10 mg PO BID 05/01/17 [History] Cefepime HCl/Dextrose, Iso-Osm [Cefepime 2 gm Injection] 2 gm IV DAILY 05/01/17 [History] Cholecalciferol (D-3) [Vitamin D] 2,000 unit PO DAILY 05/01/17 [History] Droxidopa [Northera] 600 mg PO TID 05/01/17 [History] FentaNYL PATCH [Duragesic] 12 mcg TD Q72H 05/01/17 [History] FentaNYL PATCH [Duragesic] 25 mcg TD Q72H 05/01/17 [History] HYDROcodone/Acet 5/325 mg [[place] 5-325 mg] 1 tab PO TID PRN 05/01/17 [History] Insulin ASPART [NovoLOG] 3 - 12 unit SQ TIDWM 05/01/17 [History] Insulin Aspart Prot/Insuln Asp [Novolog Mix 70-30 Vial] 30 - 40 unit SQ QAM AND QHS 05/01/17 [History] L. Acidophilus/Pectin, [place] [Acidophilus Probiotic Capsule] 1 each PO DAILY [History] Pantoprazole Sodium [Protonix] 40 mg PO DAILY 05/01/17 [History] Zinc Sulfate [Orazinc] 110 mg PO DAILY 05/01/17 [History] Allergies doxycycline Allergy (Verified 05/01/17 09:06) Hives levofloxacin [From Levaquin] Allergy (Verified 05/01/17 09:06) Swelling of Lip/Tongue/Throat prednisone Allergy (Verified 05/01/17 09:06) See Comments made her cold/ and made her sweat acetaminophen [From Percocet] Adverse Reaction (Verified 04/17/17 08:32) Vomiting azithromycin [From Zithromax Z-Henrry] Adverse Reaction (Verified 05/01/17 09:06) Vomiting Oxycodone [From Percocet] Adverse Reaction (Verified 05/01/17 09:06) Vomiting phenazopyridine [From Pyridium] Adverse Reaction (Verified 05/01/17 09:06) Rash Umdzcwb-Jsb-Eji Reductase Inhibitor [Statins] Adverse Reaction (Verified 09:06) Back Pain ROS unobtainable: due to mental status All Systems: A 10-system review of systems was performed and is negative for pertinent findings except as documented above in the HPI. Physical Examination Vital Signs: Vital Signs, Last 4 Hours Temp Pulse Resp BP Pulse Ox 05/03/17 17:13 98.2 F 110 17 91/55 94 05/03/17 16:03 118 17 82/50 05/03/17 15:10 140 19 86/47 General appearance: lethargic (Opens eyes to loud verbal stimulation) Eyes: nonicteric Neck: supple Effort: normal Inspection: normal Auscultation: bilateral: clear Cardiovascular: irregular rhythm (Tachycardic) Gastrointestinal: normoactive bowel sounds, tender (Patient grimaced with deep palpation of abdomen), non-distended Integumentary: rash Extremities: no cyanosis, no clubbing, edema, other (Right leg amputation) Gait: other (Nonambulatory) unable to assess due to mental status Results - Laboratory Findings CBC and BMP: 05/03/17 04:11 05/03/17 04:11 ABG ABG pH 7.38 pH Units (7.32-7.45) 05/01/17 18:17 ABG pCO2 37 mmHg (35-45) 05/01/17 18:17 ABG pO2 74 mmHg (85-104) L 05/01/17 18:17 ABG O2 Saturation 94 % (95-98) L 05/01/17 18:17 Abnormal lab findings: Abnormal lab results RBC 3.13 M/mcL (3.82-4.97) L 05/03/17 04:11 Hgb 9.5 g/dL (11.5-15.4) L 05/03/17 04:11 Hct 32.4 % (35.3-44.9) L 05/03/17 04:11 MCV 103.5 fL (83.0-100.0) H 05/03/17 04:11 MCHC 29.3 g/dL (31.6-35.5) L 05/03/17 04:11 RDW 17.6 % (11.5-14.5) H 05/03/17 04:11 ABG pO2 74 mmHg (85-104) L 05/01/17 18:17 ABG O2 Saturation 94 % (95-98) L 05/01/17 18:17 ABG Base Excess -2.9 mEq/L (-2.0 to 3.0) L 05/01/17 18:17 BUN 29 mg/dL (7-20) H D 05/03/17 04:11 Creatinine 5.20 mg/dL (0.57-1.11) H 05/03/17 04:11 Est GFR ( Amer) 10 (> 60) L 05/03/17 04:11 Est GFR (Non-Af Amer) 8 (> 60) L 05/03/17 04:11 Glucose 162 mg/dL (70-99) H 05/03/17 04:11 POC Glucose 214 (58-89) H 05/03/17 17:52 Troponin I 0.04 ng/mL (0-0.03) H* 05/02/17 01:01 Vancomycin Trough 36.7 mcg/mL (10-20) H* 05/03/17 04:11 - Clinical Findings Intake & Output: Intake & Output 05/03/17 05/03/17 05/03/17 07:59 15:59 23:59 Intake Total 600 / 600 Output Total 3750 / 3750 Balance -3150 / -3150 Consult Discharge Plan - Plan Referrals: NO,PCP [Primary Care Provider] - (patient will like go to [facility])
--- NOTE | 2017-05-03 19:02 | EEG/EMG/Oth Biometrics Report ---
EEG Procedure Report Date of procedure: 05/03/17 EEG Procedure: Routine EEG Procedure Note: This is a report of a 21 channel bipolar and referential montage EEG. There is no posterior dominant alpha rhythm identified at any time during the recording. The resting rhythm consists of diffuse delta wave frequencies in all leads bilaterally. Hyperventilation is not performed in recording. There is no sleep architecture identified during the study. Photic stimulation is performed and does not produce a driving response. The EKG rhythm strip reveals sinus tachycardia at 120 bpm. Impressions: This EEG recording is abnormal and is reflective of a severe generalized encephalopathy. There is no evidence of epileptiform activity identified during the recording. Comment: Etiologies to explain this interpretation might include toxic, metabolic, postictal, or degenerative. Please correlate clinically.
--- NOTE | 2017-05-03 19:18 | Neurology - Consult Note ---
Date of Encounter: 05/03/17 Time of Encounter: 19:18 Assessment and Plan (1) Delirium due to general medical condition Current Visit: No Status: Acute I suspect we are dealing with delirium due to metabolic or infectious factors. I see no evidence to arouse suspicions for a central nervous system infectious process. I did interpret the EEG which revealed severe generalized encephalopathy however no evidence of seizure activity. There is no nuchal rigidity present. Examination shows no evidence of a focal or lateralized process. We will observe her overnight. Further testing will be considered in the a.m. if she is not improved. History of Present Illness HPI: Ms. Barrientos is a 76 year old female with a history of end-stage renal disease, on dialysis, morbid obesity, hypertension, diabetes mellitus, atrial fibrillation, recent right lower extremity amputation is being seen for neurologic evaluation secondary to mental status change. History is obtained from the house staff, as well as patient's and son. states that he could see that something was starting to occur over the last 2 weeks or so. To he and his son this is a similar presentation to what they saw when she had a urinary tract infection. She was recently started on antibiotics as an outpatient for empiric treatment of her right stump infection. When she became increasingly confused and she was brought to the [facility] for further assessment. At this point time she was unresponsive and unable to give a history. A urinalysis showed high amounts of leukocyte esterase however no bacteria were isolated. She has also been hypotensive since admission. Currently however she is not febrile. Past Med Surg Social Fam HX - Past Medical History Medical history: arthritis, atrial fibrillation, cardiomyopathy, CHF, coronary artery disease, diabetes, dialysis, GERD, hyperlipidemia, migraine, myocardial infarction, peripheral artery disease, renal disease, other Psychiatric history: anxiety - Past Surgical History Surgical History: angioplasty/stent, appendectomy, cholecystectomy, hysterectomy , orthopedic, other, other - Social History Smoking Status: Never smoker Smokeless Tobacco Status: No Alcohol use: none Drug use: none - Family History Father Living Status: Cause of : heart disease Mother Living Status: Cause of : esophageal Cancer Medications and Allergies Aspirin 325 mg PO DAILY 08/17/15 [History] Cephalexin [Keflex] 250 mg PO DAILY 08/17/15 [History] Clopidogrel [Plavix] 75 mg PO DAILY 08/17/15 [History] Gabapentin [Neurontin] 300 mg PO TID 08/17/15 [History] Pravastatin Sodium [Pravachol] 40 mg PO HS 08/17/15 [History] Buspirone HCl [Buspar] 10 mg PO BID 05/01/17 [History] Cefepime HCl/Dextrose, Iso-Osm [Cefepime 2 gm Injection] 2 gm IV DAILY 05/01/17 [History] Cholecalciferol (D-3) [Vitamin D] 2,000 unit PO DAILY 05/01/17 [History] Droxidopa [Northera] 600 mg PO TID 05/01/17 [History] FentaNYL PATCH [Duragesic] 12 mcg TD Q72H 05/01/17 [History] FentaNYL PATCH [Duragesic] 25 mcg TD Q72H 05/01/17 [History] HYDROcodone/Acet 5/325 mg [[place] 5-325 mg] 1 tab PO TID PRN 05/01/17 [History] Insulin ASPART [NovoLOG] 3 - 12 unit SQ TIDWM 05/01/17 [History] Insulin Aspart Prot/Insuln Asp [Novolog Mix 70-30 Vial] 30 - 40 unit SQ QAM AND QHS 05/01/17 [History] L. Acidophilus/Pectin, [place] [Acidophilus Probiotic Capsule] 1 each PO DAILY [History] Pantoprazole Sodium [Protonix] 40 mg PO DAILY 05/01/17 [History] Zinc Sulfate [Orazinc] 110 mg PO DAILY 05/01/17 [History] Allergies doxycycline Allergy (Verified 05/01/17 09:06) Hives levofloxacin [From Levaquin] Allergy (Verified 05/01/17 09:06) Swelling of Lip/Tongue/Throat prednisone Allergy (Verified 05/01/17 09:06) See Comments made her cold/ and made her sweat acetaminophen [From Percocet] Adverse Reaction (Verified 04/17/17 08:32) Vomiting azithromycin [From Zithromax Z-Henrry] Adverse Reaction (Verified 05/01/17 09:06) Vomiting Oxycodone [From Percocet] Adverse Reaction (Verified 05/01/17 09:06) Vomiting phenazopyridine [From Pyridium] Adverse Reaction (Verified 05/01/17 09:06) Rash Svwnvho-Zue-Jmb Reductase Inhibitor [Statins] Adverse Reaction (Verified 09:06) Back Pain ROS unobtainable: due to mental status All Systems: A 10-system review of systems was performed and is negative for pertinent findings except as documented above in the HPI. Physical Examination - Vital Signs Vital Signs: Initial Vital Signs Temp Pulse Resp BP Pulse Ox 98.4 F 113 19 100/75 93 05/01/17 15:13 05/01/17 15:13 05/01/17 15:13 05/01/17 15:13 05/01/17 15:13 - Exam Exam: Neurologic examination finds the following: Cerebral-she is currently unresponsive. She is however tremulous, occasionally she will spontaneously open her eyes but she does not fixate. She does not follow commands or attempt to talk. She does however turn her head away from noxious stimuli. She also grimaces. She does withdraw on the left foot from noxious stim. Cranial nerves-pupils are equal at about 2 mm. She does not have doll's eyes. Her eyes go in the direction that her head is being turned in. There is no facial asymmetry is identified. She is maintaining her own respirations without the help of any mechanical ventilation. Motor exam finds that she does have paratonia of both upper extremities as well as the left lower extremity. She also has tremors of the upper extremities. I see no evidence of seizure activity however. Deep tendon reflexes are 2 symmetrically of the brachioradialis and triceps. The left patellar reflex is absent. No Babinski or clonus present. There is no nuchal rigidity. Results - Laboratory Findings CBC and BMP: 05/03/17 04:11 05/03/17 04:11 Abnormal lab findings: Abnormal lab results RBC 3.13 M/mcL (3.82-4.97) L 05/03/17 04:11 Hgb 9.5 g/dL (11.5-15.4) L 05/03/17 04:11 Hct 32.4 % (35.3-44.9) L 05/03/17 04:11 MCV 103.5 fL (83.0-100.0) H 05/03/17 04:11 MCHC 29.3 g/dL (31.6-35.5) L 05/03/17 04:11 RDW 17.6 % (11.5-14.5) H 05/03/17 04:11 ABG pO2 74 mmHg (85-104) L 05/01/17 18:17 ABG O2 Saturation 94 % (95-98) L 05/01/17 18:17 ABG Base Excess -2.9 mEq/L (-2.0 to 3.0) L 05/01/17 18:17 BUN 29 mg/dL (7-20) H D 05/03/17 04:11 Creatinine 5.20 mg/dL (0.57-1.11) H 05/03/17 04:11 Est GFR ( Amer) 10 (> 60) L 05/03/17 04:11 Est GFR (Non-Af Amer) 8 (> 60) L 05/03/17 04:11 Glucose 162 mg/dL (70-99) H 05/03/17 04:11 POC Glucose 214 (58-89) H 05/03/17 17:52 Troponin I 0.04 ng/mL (0-0.03) H* 05/02/17 01:01 Vancomycin Trough 36.7 mcg/mL (10-20) H* 05/03/17 04:11 Consult Discharge Plan - Plan Referrals: NO,PCP [Primary Care Provider] - (patient will like go to E[facility])
[2017-05-03 20:13] LABS: ABG Base Excess -4.1 mEq/L (-2.0 to 3.0); ABG HCO3 20.9 mEQ/L (21-27); ABG Oxygen Saturation 95 % (95-98); ABG PCO2 37 mmHg (35-45); ABG PH 7.36 pH Units (7.32-7.45); ABG PO2 78 mmHg (85-104)
[2017-05-03 20:14] LABS: Blood Gas FiO2 21 %
[2017-05-04] MEDS: INSULIN ASPART SQ SCH ×4 (01:47→18:35)
[2017-05-04] MEDS: *HR* FentaNYL PATCH 25 MCG PATCH TD SCH (04:38)
[2017-05-04] MEDS: *HR* FentaNYL PATCH 12 MCG PATCH TD SCH (04:39)
[2017-05-04 05:43] LABS: Phosphorous 5.3 mg/dL (2.3-4.7)
[2017-05-04] MEDS: *HR* Heparin 5,000 UNIT/ML VIAL SQ SCH ×2 (06:27→17:52)
--- NOTE | 2017-05-04 08:35 | Nephrology Consult Note ---
Date of Encounter: 05/01/17 Time of Encounter: 17:13 Assessment and Plan (1) End stage renal disease on dialysis Current Visit: Yes Status: Chronic ESRD MWF. Perform short HD session the day of admission and evaluate for dialysis on Monday. Renal diet. Adjust medication for renal function. (2) UTI (urinary tract infection) Current Visit: No Status: Acute Per primary team. Follow culture data. Qualifiers: Urinary tract infection type: site unspecified Hematuria presence: with hematuria Qualified Code(s): N39.0 - Urinary tract infection, site not specified; R31.9 - Hematuria, unspecified (3) Anemia Current Visit: Yes Status: Acute Monitor for bleeding. Qualifiers: Qualified Code(s): D64.9 - Anemia, unspecified (4) Metabolic encephalopathy Current Visit: Yes Status: Acute Likely secondary to UTI. Per primary team. History of Present Illness - Reason for Consult Consult date: 05/01/17 end stage renal disease - Chief Complaint AMS/ESRD - History of Present Illness See event note from the day of consult. Patient with ESRD who presented secondary to altered mental status. The history is from review of electronic medical records and family at the bedside. Patient had decreased mental status that was felt to be secondary to a UTI. Consult was placed for ongoing dialysis needs. Past Med Surg Social Fam HX - Past Medical History Medical history: arthritis, atrial fibrillation, cardiomyopathy, CHF, coronary artery disease, diabetes, dialysis, GERD, hyperlipidemia, migraine, myocardial infarction, peripheral artery disease, renal disease, other Psychiatric history: anxiety - Past Surgical History Surgical History: angioplasty/stent, appendectomy, cholecystectomy, hysterectomy , orthopedic, other, other - Social History Smoking Status: Never smoker Smokeless Tobacco Status: No Alcohol use: none Drug use: none - Family History Father Living Status: Cause of : heart disease Mother Living Status: Cause of : esophageal Cancer Medications and Allergies Aspirin 325 mg PO DAILY 08/17/15 [History] Cephalexin [Keflex] 250 mg PO DAILY 08/17/15 [History] Clopidogrel [Plavix] 75 mg PO DAILY 08/17/15 [History] Gabapentin [Neurontin] 300 mg PO TID 08/17/15 [History] Pravastatin Sodium [Pravachol] 40 mg PO HS 08/17/15 [History] Buspirone HCl [Buspar] 10 mg PO BID 05/01/17 [History] Cefepime HCl/Dextrose, Iso-Osm [Cefepime 2 gm Injection] 2 gm IV DAILY 05/01/17 [History] Cholecalciferol (D-3) [Vitamin D] 2,000 unit PO DAILY 05/01/17 [History] Droxidopa [Northera] 600 mg PO TID 05/01/17 [History] FentaNYL PATCH [Duragesic] 12 mcg TD Q72H 05/01/17 [History] FentaNYL PATCH [Duragesic] 25 mcg TD Q72H 05/01/17 [History] HYDROcodone/Acet 5/325 mg [[place] 5-325 mg] 1 tab PO TID PRN 05/01/17 [History] Insulin ASPART [NovoLOG] 3 - 12 unit SQ TIDWM 05/01/17 [History] Insulin Aspart Prot/Insuln Asp [Novolog Mix 70-30 Vial] 30 - 40 unit SQ QAM AND QHS 05/01/17 [History] L. Acidophilus/Pectin, [place] [Acidophilus Probiotic Capsule] 1 each PO DAILY [History] Pantoprazole Sodium [Protonix] 40 mg PO DAILY 05/01/17 [History] Zinc Sulfate [Orazinc] 110 mg PO DAILY 05/01/17 [History] Allergies doxycycline Allergy (Verified 05/01/17 09:06) Hives levofloxacin [From Levaquin] Allergy (Verified 05/01/17 09:06) Swelling of Lip/Tongue/Throat prednisone Allergy (Verified 05/01/17 09:06) See Comments made her cold/ and made her sweat acetaminophen [From Percocet] Adverse Reaction (Verified 04/17/17 08:32) Vomiting azithromycin [From Zithromax Z-Henrry] Adverse Reaction (Verified 05/01/17 09:06) Vomiting Oxycodone [From Percocet] Adverse Reaction (Verified 05/01/17 09:06) Vomiting phenazopyridine [From Pyridium] Adverse Reaction (Verified 05/01/17 09:06) Rash Xouofnu-Dfj-Bnq Reductase Inhibitor [Statins] Adverse Reaction (Verified 09:06) Back Pain Exam - Vital Signs Vital signs: Initial Vital Signs Temp Pulse Resp BP Pulse Ox 98.4 F 113 19 100/75 93 05/01/17 15:13 05/01/17 15:13 05/01/17 15:13 05/01/17 15:13 05/01/17 15:13 Vital Signs - Last 8 Hours Temp Pulse Resp BP Pulse Ox 05/04/17 07:30 99 14 97/78 97 05/04/17 07:25 97.8 F 05/04/17 07:00 97 05/04/17 06:00 87 12 92/58 98 05/04/17 05:00 116 20 130/59 97 05/04/17 04:00 115 12 121/89 98 05/04/17 03:00 114 11 134/92 98 05/04/17 02:00 134 16 109/52 97 05/04/17 01:00 120 11 131/46 98 Intake and Output 05/03/17 05/04/17 05/04/17 23:59 07:59 15:59 Intake Total 130 / 130 Output Total 0 / 0 0 / 0 Balance 130 / 130 0 / 0 Intake: IV Fluids 130 / 130 0.9 % Sodium Chloride 1, 30 / 30 000 ML @ 60 mls/hr IVC . [id number] [facility] Rx#: [id number] Maxipime 1,000 MG In 100 / 100 Dextrose 5% (Minibag+) 100 ML 100 ML @ 200 mls/ hr IVPB Q24H [facility] Rx#: [id number] Output: Catheter 0 / 0 0 / 0 Other: Weight 106 kg Blood Glucose* 211 206 - General Appearance General appearance: well-developed, well-nourished, obese EENT: ATNC Neck: supple Respiratory: course breath sounds (anteriorly) Cardiology: regular rate Gastrointestinal: obese Integumentary: warm and dry Neurologic: confused, disoriented Musculoskeletal: no cyanosis Results - Lab Results 05/03/17 04:11 05/03/17 04:11 Most recent lab results ABG pH 7.36 pH Units (7.32-7.45) 05/03/17 20:00 ABG pCO2 37 mmHg (35-45) 05/03/17 20:00 ABG pO2 78 mmHg (85-104) L 05/03/17 20:00 ABG HCO3 20.9 mEQ/L (21-27) L 05/03/17 20:00 ABG O2 Saturation 95 % (95-98) 05/03/17 20:00 Calcium 9.3 mg/dL (8.6-10.8) 05/03/17 04:11 Magnesium 2.0 mg/dL (1.6-2.6) 05/02/17 04:14 Phosphorus 5.3 mg/dL (2.3-4.7) H 05/04/17 05:23 Consult Discharge Plan - Plan Referrals: NO,PCP [Primary Care Provider] - (patient will like go to [facility])
[2017-05-04] MEDS ORDERED: Perflutren Lipid Microsphere 1.3 ML in 0.9 % Sodium Chloride 8.7 ML IVP ONE (09:04)
[2017-05-04] MEDS: Pantoprazole 40 MG VIAL IVP SCH (09:17)
[2017-05-04] MEDS: 0.9 % Sodium Chloride 1,000 ML IVC SCH (09:18)
[2017-05-04] MEDS ORDERED: 0.9 % Sodium Chloride 250 ML IVC PRN (10:17)
[2017-05-04] MEDS ORDERED: *HR* Heparin 10,000 UNIT/10 ML VIAL IV PRN (10:17)
--- NOTE | 2017-05-04 10:31 | Nephrology Progress Note ---
Date of Encounter: 05/04/17 Time of Encounter: 10:29 - Assessment and Plan (1) End stage renal disease on dialysis Current Visit: Yes Status: Chronic Plan for HD tomorrow Strict I/Os Avoid nephrotoxins if possible (2) Metabolic encephalopathy Current Visit: Yes Status: Acute per primary team (3) UTI (urinary tract infection) Current Visit: No Status: Acute per primary team Qualifiers: Urinary tract infection type: site unspecified Hematuria presence: with hematuria Qualified Code(s): N39.0 - Urinary tract infection, site not specified; R31.9 - Hematuria, unspecified Subjective Principal diagnosis: ESRD on dialysis, AMS Interval history: Patient seen and examined in dialysis. Opens eyes and asks who I am multiple times; moaning frequently Objective - Vital Signs Vital signs: Vital Signs Temp Pulse Resp BP Pulse Ox 05/04/17 09:00 131 14 118/55 97 05/04/17 08:00 111 16 104/76 97 05/04/17 07:30 99 14 97/78 97 05/04/17 07:25 97.8 F 05/04/17 07:00 137 97 05/04/17 06:00 87 12 92/58 98 05/04/17 05:00 116 20 130/59 97 05/04/17 04:00 115 12 121/89 98 05/04/17 03:00 114 11 134/92 98 05/04/17 02:00 134 16 109/52 97 05/04/17 01:00 120 11 131/46 98 05/04/17 00:00 117 18 112/47 98 05/03/17 23:00 98.0 F 154 20 126/86 98 05/03/17 22:00 93 12 106/48 98 05/03/17 21:00 85 12 105/61 97 05/03/17 20:00 98.1 F 120 16 134/53 97 05/03/17 19:00 120 12 119/62 96 05/03/17 18:00 98.8 F 108 14 112/78 97 05/03/17 17:13 98.2 F 110 17 91/55 94 05/03/17 16:03 118 17 82/50 05/03/17 15:10 140 19 86/47 05/03/17 12:56 98.0 F 122 18 92/56 100 05/03/17 12:05 98.4 F 20 140/52 05/03/17 12:00 131/83 05/03/17 11:45 130/93 05/03/17 11:30 114/56 05/03/17 11:15 129/91 05/03/17 11:00 124/83 05/03/17 10:45 135/38 05/03/17 10:30 102/48 Intake and Output 05/03/17 05/04/17 05/04/17 23:59 07:59 15:59 Intake Total 130 / 130 Output Total 0 / 0 0 / 0 Balance 130 / 130 0 / 0 Intake: IV Fluids 130 / 130 0.9 % Sodium Chloride 1, 30 / 30 000 ML @ 60 mls/hr IVC . [id number] SHAKIRA Rx#: [id number] Maxipime 1,000 MG In 100 / 100 Dextrose 5% (Minibag+) 100 ML 100 ML @ 200 mls/ hr IVPB Q24H SHAKIRA Rx#: [id number] Output: Catheter 0 / 0 0 / 0 Other: Meal NPO breakfast Weight 106 kg Blood Glucose* 211 206 - General Appearance General appearance: Present: obese, chronically ill, frail EENT: Present: ATNC Neck: Present: supple Respiratory: Present: clear Cardiology: Present: edema, normal S1, normal S2 Dialysis Vascular Access: Venous Catheter Gastrointestinal: Present: no tenderness, no guarding, obese Integumentary: Present: warm and dry Neurologic: Present: confused, disoriented - Lab 05/03/17 04:11 05/03/17 04:11 Most recent lab results ABG pH 7.36 pH Units (7.32-7.45) 05/03/17 20:00 ABG pCO2 37 mmHg (35-45) 05/03/17 20:00 ABG pO2 78 mmHg (85-104) L 05/03/17 20:00 ABG HCO3 20.9 mEQ/L (21-27) L 05/03/17 20:00 ABG O2 Saturation 95 % (95-98) 05/03/17 20:00 Calcium 9.3 mg/dL (8.6-10.8) 05/03/17 04:11 Magnesium 2.0 mg/dL (1.6-2.6) 05/02/17 04:14 Phosphorus 5.3 mg/dL (2.3-4.7) H 05/04/17 05:23 Consult Discharge Plan - Plan Referrals: NO,PCP [Primary Care Provider] - (patient will like go to [facility])
--- NOTE | 2017-05-04 10:58 | Pulmonology Progress Note ---
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 Mental status is improving today , patient is more alert and talking. Throughout the morning she has begun to sing and say more words and has been speaking in more fluid sentences. She is able to follow commands and move all extremities. She is alert and oriented to person and place, not to time however. EEG revealed severe generalized encephalopathy without evidence of seizure activity. Neuro has seen and evaluated the patient. Suspect that patient's altered mental status was secondary to a metabolic derangement or possibly neurontin toxicity in the setting of renal failure. Pulmonary: CTAB Cardiovascular: Hx cardiomyopathy, patient has edema and appears fluid overloaded. Bedside ultrasound obtained 05/03 at transfer to ICU which suggested LV hypokinesis. Suspect some degree of congestive heart failure. Echo study performed today was poor secondary to afib RVR, wlll need to repeat once rate controlled. Patient had hypotension yesterday and was given fluid boluses prior to transfer to ICU, which may have worsened her fluid status. Plan per discussion with nephrology to proceed with UF for further volume removal. Patient started on lopressor for rate control until able to swallow, then will switch to midodrine 5mg TID tomorrow. Blood pressure has been stable. GI: Patient has had some nausea, dry heaving today. Renal: ESRD on HD. Patient will receive HD today for ultrafiltration to assist with fluid overload status. Nephrology following. Will remove lofton today. ID: Sterile pyuria from UA at [facility]. No evidence of infection, patient has been on cefipime, which was started 04/27/17 by ID at [facility] for possible osteomyelitis in the right stump. will continue cefepime. Patient is afebrile without leukocytosis. BC results pending. Heme/Onc: H/H stable in the setting of anemia secondary to ESRD. DVT Prophylaxis: Heparin SQ Nutrition: NPO secondary to mental status. Will have swallow eval prior to attempting to feed. Patient was on soft chopped meat diet at home. GI Prophylaxis: Protonix Endocrine: Insulin SS per home regimen with home insulin pen per . OK to keep bs around 200. Lines: all lines checked and no evidence of infections CVC right subclavian, will remove lofton Skin: skin care to prevent pressure ulcers per nursing routine care. CODE STATUS: DNR-CCA/DNI (2) Atrial fibrillation with RVR Current Visit: Yes Status: Acute (3) CHF (congestive heart failure) Current Visit: Yes Status: Acute Qualifiers: Congestive heart failure type: unspecified congestive heart failure type Congestive heart failure chronicity: acute on chronic Qualified Code(s): I50.9 - Heart failure, unspecified (4) End stage renal disease on dialysis Current Visit: Yes Status: Chronic Subjective Principal diagnosis: ESRD on dialysis, AMS Interval history: Patient seen and examined, no acute events overnight. She is more alert this morning, she is singing and speaking in increasingly fluid sentences. Objective PUL Vital signs: Last Vital Signs Temp 97.8 F 05/04/17 07:25 Pulse 131 05/04/17 09:00 Resp 14 05/04/17 09:00 BP 118/55 05/04/17 09:00 Pulse Ox 97 05/04/17 09:00 General appearance: no acute distress, alert Eyes: nonicteric ENT: oropharynx dry Neck: supple, no lymphadenopathy, no JVD Effort: normal Auscultation: bilateral: clear Cardiovascular: irregular rhythm (tachycardic) Gastrointestinal: normoactive bowel sounds, soft, non-tender, non-distended Extremities: no cyanosis, no edema, no clubbing, pulses normal, other (Right BKA ) Musculoskeletal: other (Right BKA) pupils equal and round, motor strength normal and symmetric, other (Patient alert and oriented to person and place, no oriented to time. She does answer some questions appropriately and others she answers with the word "hospital." She does follow commands and is becomming more alert and converses more appropriately throughout the day. ) mood appropriate Results - Laboratory Findings CBC and BMP: 05/03/17 04:11 05/03/17 04:11 ABG ABG pH 7.36 pH Units (7.32-7.45) 05/03/17 20:00 ABG pCO2 37 mmHg (35-45) 05/03/17 20:00 ABG pO2 78 mmHg (85-104) L 05/03/17 20:00 ABG O2 Saturation 95 % (95-98) 05/03/17 20:00 Abnormal lab findings: Abnormal lab results RBC 3.13 M/mcL (3.82-4.97) L 05/03/17 04:11 Hgb 9.5 g/dL (11.5-15.4) L 05/03/17 04:11 Hct 32.4 % (35.3-44.9) L 05/03/17 04:11 MCV 103.5 fL (83.0-100.0) H 05/03/17 04:11 MCHC 29.3 g/dL (31.6-35.5) L 05/03/17 04:11 RDW 17.6 % (11.5-14.5) H 05/03/17 04:11 ABG pO2 78 mmHg (85-104) L 05/03/17 20:00 ABG HCO3 20.9 mEQ/L (21-27) L 05/03/17 20:00 ABG Base Excess -4.1 mEq/L (-2.0 to 3.0) L 05/03/17 20:00 BUN 29 mg/dL (7-20) H D 05/03/17 04:11 Creatinine 5.20 mg/dL (0.57-1.11) H 05/03/17 04:11 Est GFR ( Amer) 10 (> 60) L 05/03/17 04:11 Est GFR (Non-Af Amer) 8 (> 60) L 05/03/17 04:11 Glucose 162 mg/dL (70-99) H 05/03/17 04:11 POC Glucose 194 (58-89) H 05/04/17 06:26 Phosphorus 5.3 mg/dL (2.3-4.7) H 05/04/17 05:23 Transferrin 145 mg/dL (180-382) L 05/04/17 05:23 Ferritin 2371 ng/ml (5-204) H 05/04/17 05:23 Troponin I 0.04 ng/mL (0-0.03) H* 05/02/17 01:01 Vancomycin Trough 36.7 mcg/mL (10-20) H* 05/03/17 04:11 - Diagnostic Findings Chest x-ray: report reviewed, image reviewed Additional studies: Abdomen/Pelvis CT 05/02/17 14:45 IMPRESSION: Evaluation is limited by motion artifact. No obstructing renal or ureteral stone. Small right pleural effusion and patchy opacity in the lung bases, similar to previous exam. D/ / Deepika Singh MD / Deepika Singh MD Interpreting Provider: Deepika Singh MD Head CT 05/03/17 11:33 IMPRESSION: 1. Stable CT scan of the brain with no acute intracranial abnormality. D/ / Adalberto Ibarra MD / Adalberto Ibarra MD Interpreting Provider: Adalberto Ibarra MD Chest X-Ray 05/03/17 18:15 IMPRESSION: Findings similar the prior study showing bilateral airspace disease, likely edema. Pneumonia cannot be excluded. D/ / Darline Santamaria Cha, MD / Darline Santamaria Cha, MD Interpreting Provider: Darline Santamaria Cha, MD - Clinical Findings Intake & Output: Intake & Output 05/03/17 05/04/17 05/04/17 23:59 07:59 15:59 Intake Total 130 / 130 Output Total 0 / 0 0 / 0 Balance 130 / 130 0 / 0 Weight 106 kg Consult Discharge Plan - Plan Referrals: NO,PCP [Primary Care Provider] - (patient will like go to [facility]) <Cam Ogden - Last Filed: 05/04/17 15:35> Date of Encounter: 05/04/17 Assessment and Plan (1) CHF (congestive heart failure) Current Visit: Yes Status: Acute Qualifiers: Congestive heart failure type: unspecified congestive heart failure type Congestive heart failure chronicity: acute on chronic Qualified Code(s): I50.9 - Heart failure, unspecified (2) End stage renal disease on dialysis Current Visit: Yes Status: Chronic (3) Metabolic encephalopathy Current Visit: Yes Status: Acute (4) Atrial fibrillation Current Visit: Yes Status: Acute Qualifiers: Atrial fibrillation type: chronic Qualified Code(s): I48.2 - Chronic atrial fibrillation (5) Type 2 diabetes mellitus Current Visit: No Status: Acute Qualifiers: Diabetes mellitus complication status: with kidney complications Diabetes mellitus complication detail: with chronic kidney disease Diabetes mellitus intermediate card tender insulin use: with correction use Chronic kidney disease stage: on chronic dialysis Qualified Code(s): E11.22 - Type 2 diabetes mellitus with diabetic chronic kidney disease; N18.6 - End stage renal disease; 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4 % (35.3-44.9) L 05/03/17 04:11 MCV 103.5 fL (83.0-100.0) H 05/03/17 04:11 MCHC 29.3 g/dL (31.6-35.5) L 05/03/17 04:11 RDW 17.6 % (11.5-14.5) H 05/03/17 04:11 ABG pO2 78 mmHg (85-104) L 05/03/17 20:00 ABG HCO3 20.9 mEQ/L (21-27) L 05/03/17 20:00 ABG Base Excess -4.1 mEq/L (-2.0 to 3.0) L 05/03/17 20:00 BUN 29 mg/dL (7-20) H D 05/03/17 04:11 Creatinine 5.20 mg/dL (0.57-1.11) H 05/03/17 04:11 Est GFR ( Amer) 10 (> 60) L 05/03/17 04:11 Est GFR (Non-Af Amer) 8 (> 60) L 05/03/17 04:11 Glucose 162 mg/dL (70-99) H 05/03/17 04:11 POC Glucose 177 (58-89) H 05/04/17 11:04 Phosphorus 5.3 mg/dL (2.3-4.7) H 05/04/17 05:23 Transferrin 145 mg/dL (180-382) L 05/04/17 05:23 Ferritin 2371 ng/ml (5-204) H 05/04/17 05:23 Troponin I 0.04 ng/mL (0-0.03) H* 05/02/17 01:01 Vancomycin Trough 36.7 mcg/mL (10-20) H* 05/03/17 04:11 - Clinical Findings Intake & Output: Intake & Output 05/03/17 05/04/17 05/04/17 23:59 07:59 15:59 Intake Total 130 / 130 0 / 0 Output Total 0 / 0 0 / 0 0 / 0 Balance 130 / 130 0 / 0 0 / 0 Weight 106 kg - Attending Attestation I examined the patient review documentation. All pertinent radiographic and laboratory data were reviewed. Patient was discussed in multidisciplinary Rounds Agree with resident's documentation with the following additions. Neuro: Acute likely metabolic encephalopathy has improved since transfer to ICU. Discussed with neurology and agree that seizure and primary neurologic etiology unlikely. Unlikely related to kidney or hepatic dysfunction. Review of medical records shows patient taking outpatient Neurontin 900 mg daily. This is a possible cause given her kidney dysfunction. Continue to monitor neuro status for continued improvement. Cardiovascular: History of cardiomyopathy and bedside ultrasound yesterday revealed apparent hyperdynamic LV. Hypotension proved to be spurious once cuff was appropriately placed and fitted. Suspected patient is in some degree of worsening heart failure today following crystalloid infusions for hypertension. Discussed with nephrology and requested ultrafiltration today for careful volume removal. Started Midrin this morning as replacement for outpatient Droxidopa to facilitate ultrafiltration today. Pulmonary: Oxygenating and ventilating well. Nephro: HD dependent ESRD. Patient's been evaluated by nephrology. Hemofiltration without dialysis today. GI: Patient's mental status still prevents her from taking oral nutrition. We will discuss placement of NG tube with patient's family to facilitate enteral feeds and medications. ID: Previously evaluated by outpatient ID specialist. Was begun on empiric treatment for possible right lower extremity stump osteomyelitis versus soft tissue infection. Plan to continue cefepime. Sterile pyuria noted in UA obtained by emergency department. Patient has received vancomycin with trough of approximately 34. Discontinue vancomycin. HO: Anemia of chronic disease. Endo: History of diabetes with requirement of insulin. Patient's family has previously expressed concerns about insulin regimen and prefer that she be placed on one that is more reflective of her home regimen. Plan discussed with family and allow for looser glucose control. MSK: Right lower extremity amputation. Disposition: Patient remained in ICU. Critical care time 45 minutes
[2017-05-04] MEDS ORDERED: *HR* Metoprolol 5 MG/5 ML VIAL IVP PRN (11:16)
[2017-05-04] MEDS ORDERED: 0.9 % Sodium Chloride 2,000 ML ONE (12:07)
--- NOTE | 2017-05-04 12:29 | Neurology Progress Note ---
<Johnathon Nicholson - Last Filed: 05/04/17 12:26> Date of Encounter: 05/04/17 Time of Encounter: 09:10 Assessment and Plan (1) Delirium due to general medical condition Current Visit: No Status: Acute Patient appears improved from 1 day ago. Patient actually opened her eyes today and turned her head in my direction as I walked into the room. When asked if patient was in pain and she nodded yes but makes no attempt to answer indicate understanding of other lines of questioning. Recommendations: Continue medical management and continued to assess mental status for improvement. Patient appears to need more time to clear toxins from her system. Subjective Principal diagnosis: ESRD on dialysis, AMS Interval history: Patient seen and examined at bedside this a.m. She presently patient was alerted to my presence once I walked into the room and tracked on to me. Patient was able to track by movement as removed from has had to the foot and the bed. Patient was humming repeatedly sounded almost musical. Patient was having a bedside echo performed and was utilizing her right hand to interfere with the ultrasound probe when asked if the patient was in pain patient nodded yes slightly. Patient still unable to verbalize wants or needs. Objective - Constitutional Vitals: Temp Pulse Resp BP Pulse Ox 98.1 F 138 18 90/60 96 05/04/17 11:49 05/04/17 11:00 05/04/17 11:00 05/04/17 11:00 05/04/17 11:00 Exam: Vital Signs Temperature 98.4 F 05/01/17 15:13 Pulse Rate 113 05/01/17 15:13 Respiratory Rate 19 05/01/17 15:13 Blood Pressure 100/75 05/01/17 15:13 O2 Sat by Pulse Oximetry 93 05/01/17 15:13 Temperature 98.1 F 05/04/17 11:49 Pulse Rate 138 05/04/17 11:00 Respiratory Rate 18 05/04/17 11:00 Blood Pressure 90/60 05/04/17 11:00 O2 Sat by Pulse Oximetry 96 05/04/17 11:00 -General Appearance: Patient is a 76-year-old female who is alert to my presence in the room. When I say good morning patient turned her head and looked. Patient unable to speak secondary to her condition. Patient nods her head yes when asked if an area hurts, which appears to be all over. Patient makes no other attempts at communication -Neurological exam: unable to perform due to lack of patient participation. Patient does have bilateral and equal upper extremity strength. Unable and pushed on the patient's upper extremities. Patient with no attempt to move left lower extremity and has [id number] amputation of right lower extremity. - Head Head exam: atraumatic, normocephalic, normal inspection. - Eye Eye exam: Present: normal appearance, PERRL. - Neck Neck exam: Present: normal inspection, - Chest Chest inspection: Present: Patient has bilateral equal rise and fall of chest wall. - Respiratory Respiratory exam: Clear to auscultation bilaterally without wheezes rales or rhonchi Cardiovascular Cardiovascular exam: Present: Irregular rate and rhythm - Abdominal Exam Abdominal exam: Present: soft, nondistended, Bowel sounds normoactive throughout all 4 quadrants. - Extremities Exam Extremities exam: Present: normal inspection, full ROM - Psychiatric Psychiatric exam: AMS - Skin Skin exam: Present: warm, dry, intact, normal color Results - Laboratory Findings CBC and BMP: 05/03/17 04:11 05/03/17 04:11 Abnormal lab findings: Abnormal lab results RBC 3.13 M/mcL (3.82-4.97) L 05/03/17 04:11 Hgb 9.5 g/dL (11.5-15.4) L 05/03/17 04:11 Hct 32.4 % (35.3-44.9) L 05/03/17 04:11 MCV 103.5 fL (83.0-100.0) H 05/03/17 04:11 MCHC 29.3 g/dL (31.6-35.5) L 05/03/17 04:11 RDW 17.6 % (11.5-14.5) H 05/03/17 04:11 ABG pO2 78 mmHg (85-104) L 05/03/17 20:00 ABG HCO3 20.9 mEQ/L (21-27) L 05/03/17 20:00 ABG Base Excess -4.1 mEq/L (-2.0 to 3.0) L 05/03/17 20:00 BUN 29 mg/dL (7-20) H D 05/03/17 04:11 Creatinine 5.20 mg/dL (0.57-1.11) H 05/03/17 04:11 Est GFR ( Amer) 10 (> 60) L 05/03/17 04:11 Est GFR (Non-Af Amer) 8 (> 60) L 05/03/17 04:11 Glucose 162 mg/dL (70-99) H 05/03/17 04:11 POC Glucose 177 (58-89) H 05/04/17 11:04 Phosphorus 5.3 mg/dL (2.3-4.7) H 05/04/17 05:23 Transferrin 145 mg/dL (180-382) L 05/04/17 05:23 Ferritin 2371 ng/ml (5-204) H 05/04/17 05:23 Troponin I 0.04 ng/mL (0-0.03) H* 05/02/17 01:01 Vancomycin Trough 36.7 mcg/mL (10-20) H* 05/03/17 04:11 Consult Discharge Plan - Plan Referrals: NO,PCP [Primary Care Provider] - (patient will like go to [facility]) <Nolan Diallo - Last Filed: 05/04/17 15:18> Date of Encounter: 05/04/17 Time of Encounter: 15:15 Assessment and Plan (1) Delirium due to general medical condition Current Visit: No Status: Acute As stated above. Patient's neurologic status is improved. She has no focal or lateralized deficits. Presuming that this transient alteration in mental status was due to either some metabolic factor, medication effect or perhaps infection. I will reevaluate her at your request. Subjective Interval history: The chart was reviewed, patient was seen and examined independently. Case was discussed with Dr. Nicholson. I agree with his assessment as stated above. Upon my entering the room today the patient was awake and alert chatting with her and her son. She still has some minor confusion however is significantly improved from my assessment yesterday. Objective - Constitutional Vitals: Temp Pulse Resp BP Pulse Ox 98.1 F 104 14 114/36 96 05/04/17 11:49 05/04/17 14:00 05/04/17 14:00 05/04/17 14:00 05/04/17 14:00 Results - Laboratory Findings CBC and BMP: 05/03/17 04:11 05/03/17 04:11 Abnormal lab findings: Abnormal lab results RBC 3.13 M/mcL (3.82-4.97) L 05/03/17 04:11 Hgb 9.5 g/dL (11.5-15.4) L 05/03/17 04:11 Hct 32.4 % (35.3-44.9) L 05/03/17 04:11 MCV 103.5 fL (83.0-100.0) H 05/03/17 04:11 MCHC 29.3 g/dL (31.6-35.5) L 05/03/17 04:11 RDW 17.6 % (11.5-14.5) H 05/03/17 04:11 ABG pO2 78 mmHg (85-104) L 05/03/17 20:00 ABG HCO3 20.9 mEQ/L (21-27) L 05/03/17 20:00 ABG Base Excess -4.1 mEq/L (-2.0 to 3.0) L 05/03/17 20:00 BUN 29 mg/dL (7-20) H D 05/03/17 04:11 Creatinine 5.20 mg/dL (0.57-1.11) H 05/03/17 04:11 Est GFR ( Amer) 10 (> 60) L 05/03/17 04:11 Est GFR (Non-Af Amer) 8 (> 60) L 05/03/17 04:11 Glucose 162 mg/dL (70-99) H 05/03/17 04:11 POC Glucose 177 (58-89) H 05/04/17 11:04 Phosphorus 5.3 mg/dL (2.3-4.7) H 05/04/17 05:23 Transferrin 145 mg/dL (180-382) L 05/04/17 05:23 Ferritin 2371 ng/ml (5-204) H 05/04/17 05:23 Troponin I 0.04 ng/mL (0-0.03) H* 05/02/17 01:01 Vancomycin Trough 36.7 mcg/mL (10-20) H* 05/03/17 04:11
[2017-05-04] MEDS: Ondansetron 4 MG/2 ML VIAL IVP PRN (14:01)
[2017-05-04] MEDS: Cefepime HCl 1,000 MG in D5% in Water (Mini-Bag+) 100 ML IVPB SCH (17:51)
[2017-05-05] MEDS: INSULIN ASPART SQ SCH ×4 (01:28→18:07)
[2017-05-05 05:12] LABS: Basophils # 0.1 K/mcL (0.0-0.2); Basophils % 0.7 %; Eosinophils # 0.3 K/mcL (0.0-0.6); Eosinophils % 3.1 %; Hematocrit 32.6 % (35.3-44.9); Hemoglobin 9.5 g/dL (11.5-15.4); Immature Granulocytes % 0.4 % (0-4); Lymphocytes # 0.6 K/mcL (0.6-4.6); Lymphocytes % 7.4 %; Mean Corpuscular HGB Conc 29.1 g/dL (31.6-35.5); Mean Corpuscular Hemoglobin 30.4 pg (28.0-33.3); Mean Corpuscular Volume 104.5 fL (83.0-100.0); Mean Platelet Volume 12.1 fL (9.4-12.4); Monocytes # 0.9 K/mcL (0.0-1.3); Monocytes % 11.3 %; Neutrophils # 6.3 K/mcL (1.6-8.9); Platelet Count 180 K/mcL (140-400); Red Blood Count 3.12 M/mcL (3.82-4.97); Segmented Neutrophils % 77.1 %
[2017-05-05 05:23] LABS: Calcium 9.8 mg/dL (8.6-10.8); Potassium 4.5 mEq/L (3.5-4.5)
[2017-05-05] MEDS: *HR* Heparin 5,000 UNIT/ML VIAL SQ SCH ×2 (06:32→17:23)
[2017-05-05] MEDS ORDERED: *HR* Heparin 10,000 UNIT/10 ML VIAL IV PRN (07:48)
[2017-05-05] MEDS ORDERED: 0.9 % Sodium Chloride 250 ML IVC PRN (07:48)
[2017-05-05] MEDS: Pantoprazole 40 MG VIAL IVP SCH (07:50)
--- NOTE | 2017-05-05 09:17 | Pulmonology Progress Note ---
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 She is able to follow commands and move all extremities. She is alert and oriented to person, not to time, place or situation. EEG revealed severe generalized encephalopathy without evidence of seizure activity. Neuro has seen and evaluated the patient. Suspect that patient's altered mental status was secondary to a metabolic derangement or possibly neurontin toxicity in the setting of renal failure and is improving. Pulmonary: CTAB, oxygenating well Cardiovascular: Hx cardiomyopathy, patient has edema and appears fluid overloaded. Afib RVR. Bedside ultrasound obtained 05/03 at transfer to ICU which suggested LV hypokinesis. Suspect some degree of congestive heart failure. Echo study performed today was poor secondary to afib RVR, wlll need to repeat once rate controlled. Patient had 3L fluid removed with HD yesterday, is undergoing HD today. Will start midodrine 5mg TID. Blood pressure has been labile. It is difficult to get accurate blood pressures on the patient. Phenylephrine gtt started for hypotension. GI: Patient has abdominal tenderness, will get KUB. Swallow eval today Renal: ESRD on HD. Patient will receive HD today and bicarb per nephrology. Nephrology following. ID: Sterile pyuria from UA at [place] ED. No evidence of infection, patient has been on cefipime, which was started 04/27/17 by ID at [facility] for possible osteomyelitis in the right stump. will continue cefepime. Patient is afebrile without leukocytosis. BC negative to date. Heme/Onc: H/H stable in the setting of anemia secondary to ESRD. DVT Prophylaxis: Heparin SQ Nutrition: NPO secondary to mental status. Will have swallow eval prior to attempting to feed. Patient was on soft chopped meat diet at home. Plan to advance diet after swallow eval. GI Prophylaxis: Protonix Endocrine: Insulin SS per home regimen with home insulin pen per . OK to keep bs around 200. Lines: all lines checked and no evidence of infections Skin: skin care to prevent pressure ulcers per nursing routine care. HD line right chest, EPIV on the left Once blood pressure has stabilized we will evaluate potential transfer out of the ICU. CODE STATUS: DNR-CCA/DNI (2) Atrial fibrillation with RVR Current Visit: Yes Status: Acute (3) CHF (congestive heart failure) Current Visit: Yes Status: Acute Qualifiers: Congestive heart failure type: unspecified congestive heart failure type Congestive heart failure chronicity: acute on chronic Qualified Code(s): I50.9 - Heart failure, unspecified (4) End stage renal disease on dialysis Current Visit: Yes Status: Chronic Subjective Principal diagnosis: ESRD on dialysis, AMS Interval history: Patient seen and examined, no acute events overnight. She was confused all night. She is more alert this morning compared to yesterday although she is oriented only to person. Objective PUL Vital signs: Last Vital Signs Temp 97.7 F 05/05/17 07:50 Pulse 118 05/05/17 08:30 Resp 14 05/05/17 08:30 BP 100/39 05/05/17 08:30 Pulse Ox 97 05/05/17 08:30 General appearance: no acute distress, alert Eyes: nonicteric ENT: oropharynx dry Neck: supple, no lymphadenopathy, no JVD Effort: normal Auscultation: bilateral: clear Cardiovascular: irregular rhythm Gastrointestinal: normoactive bowel sounds, soft, tender, non-distended Integumentary: normal Extremities: no cyanosis, pulses normal, edema, other (right BKA) Gait: other (Right BKA) pupils equal and round, other (Patient oriented to self, not oriented to place, time or sitaution.) mood appropriate, affect normal Results - Laboratory Findings CBC and BMP: 05/05/17 04:48 05/05/17 04:48 ABG ABG pH 7.36 pH Units (7.32-7.45) 05/03/17 20:00 ABG pCO2 37 mmHg (35-45) 05/03/17 20:00 ABG pO2 78 mmHg (85-104) L 05/03/17 20:00 ABG O2 Saturation 95 % (95-98) 05/03/17 20:00 Abnormal lab findings: Abnormal lab results RBC 3.12 M/mcL (3.82-4.97) L 05/05/17 04:48 Hgb 9.5 g/dL (11.5-15.4) L 05/05/17 04:48 Hct 32.6 % (35.3-44.9) L 05/05/17 04:48 MCV 104.5 fL (83.0-100.0) H 05/05/17 04:48 MCHC 29.1 g/dL (31.6-35.5) L 05/05/17 04:48 RDW 17.0 % (11.5-14.5) H 05/05/17 04:48 ABG pO2 78 mmHg (85-104) L 05/03/17 20:00 ABG HCO3 20.9 mEQ/L (21-27) L 05/03/17 20:00 ABG Base Excess -4.1 mEq/L (-2.0 to 3.0) L 05/03/17 20:00 BUN 38 mg/dL (7-20) H 05/05/17 04:48 Creatinine 6.05 mg/dL (0.57-1.11) H 05/05/17 04:48 Est GFR ( Amer) 8 (> 60) L 05/05/17 04:48 Est GFR (Non-Af Amer) 7 (> 60) L 05/05/17 04:48 Glucose 190 mg/dL (70-99) H 05/05/17 04:48 POC Glucose 170 (58-89) H 05/05/17 01:27 Calculated Osmolality 302 (280-300) H 05/05/17 04:48 Phosphorus 5.3 mg/dL (2.3-4.7) H 05/04/17 05:23 Transferrin 145 mg/dL (180-382) L 05/04/17 05:23 Ferritin 2371 ng/ml (5-204) H 05/04/17 05:23 Troponin I 0.04 ng/mL (0-0.03) H* 05/02/17 01:01 Vancomycin Trough 26.3 mcg/mL (10-20) H* 05/05/17 04:48 - Microbiology Findings Microbiology Findings: Microbiology, Last 48 Hours 05/03/17 19:50 Blood Culture - Preliminary Peripheral Venipuncture No growth. - Diagnostic Findings Additional studies: KUB X-Ray 05/05/17 08:36 IMPRESSION: No acute abnormalities are seen in the abdomen or pelvis. D/ 05/05/2017 12:43:57 Nolan Peters MD / bcarter Interpreting Provider: Nolan Peters MD - Clinical Findings Intake & Output: Intake & Output 05/04/17 05/05/17 05/05/17 23:59 07:59 15:59 Intake Total 100 / 100 0 / 0 Output Total 3600 / 3600 0 / 0 Balance -3500 / -3500 0 / 0 Consult Discharge Plan - Plan Referrals: NO,PCP [Primary Care Provider] - (patient will like go to [facility]) <Cam Ogden - Last Filed: 05/05/17 15:22> Date of Encounter: 05/05/17 Assessment and Plan (1) CHF (congestive heart failure) Current Visit: Yes Status: Acute Qualifiers: Congestive heart failure type: unspecified congestive heart failure type Congestive heart failure chronicity: acute on chronic Qualified Code(s): I50.9 - Heart failure, unspecified (2) End stage renal disease on dialysis Current Visit: Yes Status: Chronic (3) Metabolic encephalopathy Current Visit: Yes Status: Acute (4) Atrial fibrillation Current Visit: Yes Status: Acute Qualifiers: Atrial fibrillation type: chronic Qualified Code(s): I48.2 - Chronic atrial fibrillation (5) Type 2 diabetes mellitus Current Visit: No Status: Acute Qualifiers: Diabetes mellitus complication status: with kidney complications Diabetes mellitus complication detail: with chronic kidney disease Diabetes mellitus termination clerk insulin use: with termination clerk use Chronic kidney disease stage: on chronic dialysis Qualified Code(s): E11.22 - Type 2 diabetes mellitus with diabetic chronic kidney disease; N18.6 - End stage renal disease; Z79.4 - correction (current) use of insulin; Z99.2 - Dependence on renal dialysis Objective PUL Vital signs: Last Vital Signs Temp 98.5 F 05/05/17 12:30 Pulse 129 05/05/17 14:00 Resp 10 05/05/17 14:00 BP 101/72 05/05/17 14:00 Pulse Ox 94 05/05/17 14:00 Results - Laboratory Findings CBC and BMP: 05/05/17 04:48 05/05/17 04:48 ABG ABG pH 7.36 pH Units (7.32-7.45) 05/03/17 20:00 ABG pCO2 37 mmHg (35-45) 05/03/17 20:00 ABG pO2 78 mmHg (85-104) L 05/03/17 20:00 ABG O2 Saturation 95 % (95-98) 05/03/17 20:00 Abnormal lab findings: Abnormal lab results RBC 3.12 M/mcL (3.82-4.97) L 05/05/17 04:48 Hgb 9.5 g/dL (11.5-15.4) L 05/05/17 04:48 Hct 32.6 % (35.3-44.9) L 05/05/17 04:48 MCV 104.5 fL (83.0-100.0) H 05/05/17 04:48 MCHC 29.1 g/dL (31.6-35.5) L 05/05/17 04:48 RDW 17.0 % (11.5-14.5) H 05/05/17 04:48 ABG pO2 78 mmHg (85-104) L 05/03/17 20:00 ABG HCO3 20.9 mEQ/L (21-27) L 05/03/17 20:00 ABG Base Excess -4.1 mEq/L (-2.0 to 3.0) L 05/03/17 20:00 BUN 38 mg/dL (7-20) H 05/05/17 04:48 Creatinine 6.05 mg/dL (0.57-1.11) H 05/05/17 04:48 Est GFR ( Amer) 8 (> 60) L 05/05/17 04:48 Est GFR (Non-Af Amer) 7 (> 60) L 05/05/17 04:48 Glucose 190 mg/dL (70-99) H 05/05/17 04:48 POC Glucose 143 (58-89) H 05/05/17 12:42 Calculated Osmolality 302 (280-300) H 05/05/17 04:48 Phosphorus 5.3 mg/dL (2.3-4.7) H 05/04/17 05:23 Transferrin 145 mg/dL (180-382) L 05/04/17 05:23 Ferritin 2371 ng/ml (5-204) H 05/04/17 05:23 Troponin I 0.04 ng/mL (0-0.03) H* 05/02/17 01:01 Vancomycin Trough 26.3 mcg/mL (10-20) H* 05/05/17 04:48 - Microbiology Findings Microbiology Findings: Microbiology, Last 48 Hours 05/03/17 19:50 Blood Culture - Preliminary Peripheral Venipuncture No growth. - Clinical Findings Intake & Output: Intake & Output 05/04/17 05/05/17 05/05/17 23:59 07:59 15:59 Intake Total 100 / 100 0 / 0 600 / 600 Output Total 3600 / 3600 0 / 0 1600 / 1600 Balance -3500 / -3500 0 / 0 -1000 / -1000 - Attending Attestation I examined the patient reviewed documentation. All pertinent radiographic and laboratory data were reviewed. The patient was discussed in multidisciplinary rounds and agree with the resident's documentation with the following additions. Neuro: Metabolic encephalopathy. Improved her the past 2 days patient now speaking interactive. Approaching baseline status according to family. Cardiovascular: A. fib with periods of unsustained RVR. Intermittent hypotension although these data may be spurious due to difficulty noninvasive cuff. Patient placed on IV phenylephrine to tolerate HD today. Patient now able to take oral medications and will start Midrin. Pulmonary: Ventilating and oxygenating well. Nephro: Underwent intermittent Hg today. Patient has had approximately 8 L of fluid removal of her past 3 days. Has demonstrated some hemodynamic difficulty with tolerance. Plan for respite over the weekend. ID: Continue cefepime as begun by outpatient ID for suspected soft tissue stump infection versus osteoarthritis. Thank started on this admission for sterile pyuria. Has not been redosed in several days but but trough remains elevated due to poor clearance. GI: Patient underwent an passed swallow study today. Begin enteral nutrition and resumption of antral medications. HO: Stable chronic anemia. Endocrine: Hyperglycemia. Patient's /caregiver reports patient's baseline serum blood glucose is to be elevated and would prefer looser glycemic control. Plan to continue with modified sliding scale. Musculoskeletal: Status post right lower leg dictation. Distal: Remain in ICU. Critical care time 45 minutes
[2017-05-05] MEDS ORDERED: 0.9 % Sodium Chloride 2,000 ML ONE (09:32)
[2017-05-05] MEDS ORDERED: Albumin 25% 12.5gm/50mL 25.0 GM/100 ML IV.SOLN ONE (09:35)
[2017-05-05] MEDS ORDERED: Albumin 25% 25gram/100mL 25 GM/100 ML IV.SOLN IVPB ONE (09:37)
[2017-05-05] MEDS ORDERED: Phenylephrine 10 MG in D5% in Water 250 ML IVC SCH (11:45)
--- NOTE | 2017-05-05 13:12 | Nephrology Progress Note ---
Date of Encounter: 05/05/17 Time of Encounter: 13:05 - Assessment and Plan (1) End stage renal disease on dialysis Current Visit: Yes Status: Chronic HD MWF. She seems to be tolerating HD well via a right IJ tunneled catheter. Will continue HD per home prescription and as needed. Renal dose medications. Renal diet. (2) UTI (urinary tract infection) Current Visit: No Status: Acute Patient on vancomycin and cefepime. Management per primary team. Qualifiers: Urinary tract infection type: site unspecified Hematuria presence: with hematuria Qualified Code(s): N39.0 - Urinary tract infection, site not specified; R31.9 - Hematuria, unspecified (3) Anemia Current Visit: Yes Status: Acute Check iron stores. May need to resume kale. Monitor for bleeding. Qualifiers: Qualified Code(s): D64.9 - Anemia, unspecified (4) Metabolic encephalopathy Current Visit: Yes Status: Acute Attributed to UTI. Monitor for improvement. Improving. Subjective Principal diagnosis: ESRD on dialysis, AMS Interval history: Patient seen on dialysis. She is more verbal and alert than she has been. She is stilll not oriented. Objective - Vital Signs Vital signs: Vital Signs Temp Pulse Resp BP Pulse Ox 05/05/17 12:30 98.5 F 123 8 104/47 94 05/05/17 12:00 97.7 F 20 94/51 05/05/17 11:35 97.4 F L 94/51 05/05/17 11:30 135 16 83/47 95 05/05/17 11:20 84/60 05/05/17 11:15 71/45 05/05/17 11:00 109/66 05/05/17 10:45 99/59 05/05/17 10:30 135 12 93/76 94 05/05/17 10:15 98/72 05/05/17 10:00 112/42 05/05/17 09:45 89/62 05/05/17 09:30 122 12 105/50 94 05/05/17 09:15 97.7 F 22 91/47 05/05/17 08:30 118 14 100/39 97 05/05/17 07:50 97.7 F 05/05/17 07:30 97.7 F 123 10 95/51 93 05/05/17 06:00 120 18 90/51 98 05/05/17 05:00 108 18 105/41 98 05/05/17 04:00 100 19 107/76 98 05/05/17 03:00 100 17 92/39 95 05/05/17 02:00 110 20 88/44 93 05/05/17 01:00 110 20 109/36 94 05/05/17 00:00 102 18 111/60 94 05/04/17 23:00 108 24 94/44 96 05/04/17 22:00 110 18 106/66 96 05/04/17 21:00 107 18 111/44 96 05/04/17 20:00 98.8 F 101 20 106/55 96 05/04/17 19:55 107 05/04/17 19:51 96 05/04/17 18:00 118 15 85/59 96 05/04/17 17:45 98.7 F 16 113/74 05/04/17 17:30 101/40 05/04/17 17:15 100/77 05/04/17 17:00 116 12 92/50 99 05/04/17 16:45 113/60 05/04/17 16:30 101/50 05/04/17 16:15 109/46 05/04/17 16:00 97 12 89/40 05/04/17 15:45 91/55 05/04/17 15:30 98.7 F 16 119/80 05/04/17 15:28 98.7 F 05/04/17 14:00 104 14 114/36 96 Intake and Output 05/04/17 05/05/17 05/05/17 23:59 07:59 15:59 Intake Total 100 / 100 0 / 0 600 / 600 Output Total 3600 / 3600 0 / 0 1600 / 1600 Balance -3500 / -3500 0 / 0 -1000 / -1000 Intake: IV Fluids 100 / 100 Maxipime 1,000 MG In 100 / 100 Dextrose 5% (Minibag+) 100 ML 100 ML @ 200 mls/ hr IVPB Q24H [facility] Rx#: [id number] Oral 0 / 0 0 / 0 0 / 0 Intake, Rinseback and 600 / 600 Flushes Output: Urine 0 / 0 0 / 0 0 / 0 Total Dialysis (HD) 3600 / 3600 1600 / 1600 Output Other 0 / 0 Other: Meal NPO breakfast Blood Glucose* 190 143 Hemodialysis Net Fluid 3000 1000 Removed (mL) - General Appearance General appearance: Present: well-developed, well-nourished, obese EENT: Present: ATNC Neck: Present: supple Additional Comments: tachycardic Neurologic: Present: disoriented - Lab 05/05/17 04:48 05/05/17 04:48 Most recent lab results ABG pH 7.36 pH Units (7.32-7.45) 05/03/17 20:00 ABG pCO2 37 mmHg (35-45) 05/03/17 20:00 ABG pO2 78 mmHg (85-104) L 05/03/17 20:00 ABG HCO3 20.9 mEQ/L (21-27) L 05/03/17 20:00 ABG O2 Saturation 95 % (95-98) 05/03/17 20:00 Calcium 9.8 mg/dL (8.6-10.8) 05/05/17 04:48 Magnesium 2.0 mg/dL (1.6-2.6) 05/02/17 04:14 Phosphorus 5.3 mg/dL (2.3-4.7) H 05/04/17 05:23 Consult Discharge Plan - Plan Referrals: NO,PCP [Primary Care Provider] - (patient will like go to [facility])
[2017-05-05] MEDS: Cefepime HCl 1,000 MG in D5% in Water (Mini-Bag+) 100 ML IVPB SCH (16:49)
[2017-05-05] MEDS: DROXIDOPA 600 MG PO SCH (17:32)
[2017-05-06] MEDS: DROXIDOPA 600 MG PO SCH (00:34)
[2017-05-06] MEDS: INSULIN ASPART SQ SCH ×5 (00:43→23:49)
[2017-05-06] MEDS ORDERED: DROXIDOPA 600 MG PO SCH (01:00)
[2017-05-06 05:33] LABS: Basophils # 0.1 K/mcL (0.0-0.2); Basophils % 0.8 %; Eosinophils # 0.3 K/mcL (0.0-0.6); Eosinophils % 3.8 %; Hematocrit 31.1 % (35.3-44.9); Hemoglobin 9.3 g/dL (11.5-15.4); Immature Granulocytes % 0.4 % (0-4); Lymphocytes # 1.1 K/mcL (0.6-4.6); Lymphocytes % 14.8 %; Mean Corpuscular HGB Conc 29.9 g/dL (31.6-35.5); Mean Corpuscular Hemoglobin 30.6 pg (28.0-33.3); Mean Corpuscular Volume 102.3 fL (83.0-100.0); Mean Platelet Volume 12.2 fL (9.4-12.4); Monocytes # 0.9 K/mcL (0.0-1.3); Monocytes % 11.4 %; Neutrophils # 5.2 K/mcL (1.6-8.9); Platelet Count 142 K/mcL (140-400); Red Blood Count 3.04 M/mcL (3.82-4.97); Red Cell Distribution Width 16.9 % (11.5-14.5); Segmented Neutrophils % 68.8 %
[2017-05-06 05:47] LABS: Calcium 9.7 mg/dL (8.6-10.8)
[2017-05-06 05:51] LABS: Potassium 4.8 mEq/L (3.5-4.5)
[2017-05-06] MEDS: *HR* Heparin 5,000 UNIT/ML VIAL SQ SCH ×2 (06:29→18:06)
[2017-05-06] MEDS ORDERED: Acetaminophen 325 MG TABLET PO PRN (08:09)
[2017-05-06] MEDS: DROXIDOPA 200 MG PO SCH ×3 (08:16→23:52)
[2017-05-06] MEDS: NOVOLOG MIX SQ SCH ×2 (08:17→17:39)
[2017-05-06] MEDS: Pantoprazole 40 MG VIAL IVP SCH (08:22)
--- NOTE | 2017-05-06 09:21 | Pulmonology Progress Note ---
Date of Encounter: 05/06/17 Time of Encounter: 08:20 Assessment and Plan (1) Metabolic encephalopathy Current Visit: Yes Status: Acute Neuro: Encephalopathy most likely metabolic. No evidence of primary neurologic disorder. Mental status improved significantly over the past 2-3 days. This morning patient is interactive with only mild residual confusion. Suspect encephalopathy is related to long-term Neurontin use with end-stage renal disease. Neurontin has been held at this point there is no plan to restart. Cardiovascular: Continued A. fib with nonsustained periods of RVR. Blood pressure monitoring has been somewhat challenging and patient did require a period of phenylephrine infusion during dialysis. Approximately 8 L has been removed and hemofiltration in the previous 3 days. This seems to result in improvement in patient's CHF. Last phenylephrine infusion completed at approximately 5 PM yesterday. Patient's has brought in her outpatient Droxidopa. The postman verified by pharmacy and this will be administered for maintenance of MAP. Pulmonary: Oxygen ventilating well. Nephro: ESRD HD dependence. No indication for emergent HD today. Plan for respite over the weekend with resumption of normal schedule on Monday. ID: Sterile pyuria on admission UA. No evidence of infection. Patient was begun on vancomycin and trough still remains therapeutic. No plan for resumption of vancomycin therapy. Patient started on IV cefepime by outpatient ID specialist for concern for stump soft tissue infection versus osteomyelitis. Continue cefepime infusions. HO: Stable anemia. Endocrine: Type 2 diabetes. Patient's expresses concern over what he will consider aggressive glucose control. This is been discussed with him and will permit looser control to be more reflective of her outpatient regimen. MSK: Status post right lower leg amputation. Disposition: Transfer to internal medicine. Critical care time 40 minutes (2) CHF (congestive heart failure) Current Visit: Yes Status: Chronic Qualifiers: Congestive heart failure type: unspecified congestive heart failure type Congestive heart failure chronicity: acute on chronic Qualified Code(s): I50.9 - Heart failure, unspecified (3) End stage renal disease on dialysis Current Visit: Yes Status: Chronic (4) Atrial fibrillation Current Visit: Yes Status: Chronic Qualifiers: Atrial fibrillation type: chronic Qualified Code(s): I48.2 - Chronic atrial fibrillation (5) Type 2 diabetes mellitus Current Visit: No Status: Chronic Qualifiers: Diabetes mellitus complication status: with kidney complications Diabetes mellitus complication detail: with chronic kidney disease Diabetes 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 Initial readings appear to be spurious and more related to cuff function location than actual hypotension. Altered mentation that appears attributable to the use of Neurontin in the setting of end-stage renal disease has improved significantly since transfer to ICU. Patient did require a period of phenylephrine infusion to tolerate dialysis yesterday. No recurrence of hypotension overnight. Outpatient Droxidopa has been restarted at the request of patient's . Today patient reports feeling well with some lingering confusion and headache. Reports abdominal tenderness in the area of the heparin injections. Otherwise has no new complaints. Objective PUL Vital signs: Last Vital Signs Temp 98.6 F 05/06/17 07:40 Pulse 130 05/06/17 08:02 Resp 12 05/06/17 08:02 BP 114/55 05/06/17 08:02 Pulse Ox 92 05/06/17 08:02 General appearance: no acute distress Eyes: nonicteric Neck: supple Effort: normal Auscultation: bilateral: clear Cardiovascular: irregular rhythm, other (Tachycardia) Gastrointestinal: tender (Superficial tenderness to lower abdomen.), other ( Ecchymosis over the lower abdomen at the injection sites for heparin.) Extremities: no cyanosis, no clubbing, edema (Right lower leg amputation) other (No focal deficits. Mild confusion.) mood appropriate Results - Laboratory Findings CBC and BMP: 05/06/17 05:24 05/06/17 05:24 ABG ABG pH 7.36 pH Units (7.32-7.45) 05/03/17 20:00 ABG pCO2 37 mmHg (35-45) 05/03/17 20:00 ABG pO2 78 mmHg (85-104) L 05/03/17 20:00 ABG O2 Saturation 95 % (95-98) 05/03/17 20:00 Abnormal lab findings: Abnormal lab results RBC 3.04 M/mcL (3.82-4.97) L 05/06/17 05:24 Hgb 9.3 g/dL (11.5-15.4) L 05/06/17 05:24 Hct 31.1 % (35.3-44.9) L 05/06/17 05:24 MCV 102.3 fL (83.0-100.0) H 05/06/17 05:24 MCHC 29.9 g/dL (31.6-35.5) L 05/06/17 05:24 RDW 16.9 % (11.5-14.5) H 05/06/17 05:24 ABG pO2 78 mmHg (85-104) L 05/03/17 20:00 ABG HCO3 20.9 mEQ/L (21-27) L 05/03/17 20:00 ABG Base Excess -4.1 mEq/L (-2.0 to 3.0) L 05/03/17 20:00 Sodium 134 mEq/L (136-145) L 05/06/17 05:24 Potassium 4.8 mEq/L (3.5-4.5) H 05/06/17 05:24 Chloride 95 mEq/L (98-109) L 05/06/17 05:24 BUN 30 mg/dL (7-20) H 05/06/17 05:24 Creatinine 5.12 mg/dL (0.57-1.11) H 05/06/17 05:24 Est GFR ( Amer) 10 (> 60) L 05/06/17 05:24 Est GFR (Non-Af Amer) 8 (> 60) L 05/06/17 05:24 Glucose 156 mg/dL (70-99) H 05/06/17 05:24 POC Glucose 160 (58-89) H 05/06/17 06:32 Phosphorus 5.3 mg/dL (2.3-4.7) H 05/04/17 05:23 Transferrin 145 mg/dL (180-382) L 05/04/17 05:23 Ferritin 2371 ng/ml (5-204) H 05/04/17 05:23 Troponin I 0.04 ng/mL (0-0.03) H* 05/02/17 01:01 Vancomycin Trough 26.3 mcg/mL (10-20) H* 05/05/17 04:48 - Microbiology Findings Microbiology Findings: Microbiology, Last 48 Hours 05/03/17 19:50 Blood Culture - Preliminary Peripheral Venipuncture No growth. - Clinical Findings Intake & Output: Intake & Output 05/05/17 05/06/17 05/06/17 23:59 07:59 15:59 Intake Total 310 / 310 10 100 / 100 Output Total 191 / 191 0 / 0 0 / 0 Balance 119 / 119 10 100 / 100 Weight 106 kg Consult Discharge Plan - Plan Referrals: NO,PCP [Primary Care Provider] - (patient will like go to [facility])
--- NOTE | 2017-05-06 11:53 | Nephrology Progress Note ---
Date of Encounter: 05/06/17 Time of Encounter: 11:51 - Assessment and Plan (1) End stage renal disease on dialysis Current Visit: Yes Status: Chronic HD MWF. She seems to be tolerating HD well via a right IJ tunneled catheter. Will continue HD per home prescription and as needed. Renal dose medications. Renal diet. (2) UTI (urinary tract infection) Current Visit: No Status: Acute Patient on vancomycin and cefepime. Management per primary team. Qualifiers: Urinary tract infection type: site unspecified Hematuria presence: with hematuria Qualified Code(s): N39.0 - Urinary tract infection, site not specified; R31.9 - Hematuria, unspecified (3) Anemia Current Visit: Yes Status: Acute iron stores sufficient. Aranesp started. Monitor for bleeding. Qualifiers: Qualified Code(s): D64.9 - Anemia, unspecified (4) Metabolic encephalopathy Current Visit: Yes Status: Acute Attributed to UTI. Improving, but not consistently oriented. Subjective Principal diagnosis: ESRD on dialysis, AMS Interval history: Patient seen. She is more verbal and alert than she has been. She has no complaints. Objective - Vital Signs Vital signs: Vital Signs Temp Pulse Resp BP Pulse Ox 05/06/17 11:27 129 12 121/56 94 05/06/17 10:41 118 12 116/59 92 05/06/17 09:45 128 12 104/45 92 05/06/17 08:02 130 12 114/55 92 05/06/17 07:40 98.6 F 05/06/17 06:00 114 14 122/66 94 05/06/17 05:30 120 16 123/68 92 05/06/17 04:30 98.7 F 98 14 93/53 98 05/06/17 03:00 94 12 101/49 100 05/06/17 02:00 116 18 115/41 99 05/06/17 01:00 113 16 108/56 99 05/06/17 00:00 111 16 106/50 99 05/05/17 23:56 98.4 F 05/05/17 23:00 113 14 106/39 99 05/05/17 22:02 114 12 103/39 99 05/05/17 21:37 99 14 74/40 99 05/05/17 20:30 101 17 102/51 93 06/23/17 20:21 97.9 F 05/05/17 19:30 104 16 95/41 91 05/05/17 18:00 107 16 89/63 91 05/05/17 17:09 130 16 104/74 93 05/05/17 15:56 98.4 F 05/05/17 15:30 133 13 106/50 93 05/05/17 14:00 129 10 101/72 94 05/05/17 13:30 124 14 97/46 95 05/05/17 12:30 98.5 F 123 8 104/47 94 05/05/17 12:00 97.7 F 20 94/51 Intake and Output 05/05/17 05/06/17 05/06/17 23:59 07:59 15:59 Intake Total 310 / 310 10 10 340 / 340 Output Total 191 / 191 0 / 0 0 / 0 Balance 119 / 119 10 / 10 340 / 340 Intake: IV Fluids 250 / 250 100 / 100 Phenylephrine 10 MG In 250 / 250 Dextrose 5% 250 ML @ 100 MCG/MIN 150.6 mls/hr IVC CONT [facility] Rx#:[id number] Maxipime 1,000 MG In 100 / 100 Dextrose 5% (Minibag+) 100 ML 100 ML @ 200 mls/ hr IVPB Q24H [facility] Rx#: [id number] Oral 60 / 60 10 / 10 240 / 240 Output: Urine 0 / 0 0 / 0 0 / 0 Catheter 191 / 191 Other: Meal Breakfast Percent of Meal Consumed 50% Weight 106 kg Blood Glucose* 121 160 - General Appearance General appearance: Present: well-developed, obese EENT: Present: ATNC Neck: Present: supple Additional Comments: Respirations are unlabored Additional Comments: Tachycardic Dialysis Vascular Access: Venous Catheter Gastrointestinal: Present: obese - Lab 05/06/17 05:24 05/06/17 05:24 Most recent lab results ABG pH 7.36 pH Units (7.32-7.45) 05/03/17 20:00 ABG pCO2 37 mmHg (35-45) 05/03/17 20:00 ABG pO2 78 mmHg (85-104) L 05/03/17 20:00 ABG HCO3 20.9 mEQ/L (21-27) L 05/03/17 20:00 ABG O2 Saturation 95 % (95-98) 05/03/17 20:00 Calcium 9.7 mg/dL (8.6-10.8) 05/06/17 05:24 Magnesium 2.0 mg/dL (1.6-2.6) 05/02/17 04:14 Phosphorus 5.3 mg/dL (2.3-4.7) H 05/04/17 05:23 Consult Discharge Plan - Plan Referrals: NO,PCP [Primary Care Provider] - (patient will like go to [facility])
[2017-05-06] MEDS ORDERED: Cefepime HCl 2,000 MG in D5% in Water (Mini-Bag+) 100 ML IVPB SCH (16:00)
[2017-05-06] MEDS ORDERED: Cefepime HCl 500 MG in D5% in Water 100 ML IVPB SCH (16:00)
[2017-05-07] MEDS: *HR* FentaNYL PATCH 25 MCG PATCH TD SCH (05:10)
[2017-05-07] MEDS: *HR* Heparin 5,000 UNIT/ML VIAL SQ SCH ×2 (05:10→18:22)
[2017-05-07] MEDS: *HR* FentaNYL PATCH 12 MCG PATCH TD SCH (05:11)
[2017-05-07] MEDS: INSULIN ASPART SQ SCH (06:22)
[2017-05-07] MEDS: NOVOLOG MIX SQ SCH (07:43)
[2017-05-07] MEDS: DROXIDOPA 200 MG PO SCH ×2 (07:43→16:47)
[2017-05-07] MEDS: Pantoprazole 40 MG VIAL IVP SCH (07:45)
[2017-05-07] MEDS ORDERED: *HR* Metoprolol 5 MG/5 ML VIAL IVP PRN (10:55)
[2017-05-07] MEDS ORDERED: Dextrose Gel 15 GM PO PRN ×2 (10:55)
[2017-05-07] MEDS ORDERED: Naloxone 0.4 MG/ML INJ IVP PRN (10:55)
[2017-05-07] MEDS ORDERED: Acetaminophen 325 MG TABLET PO PRN (10:55)
[2017-05-07] MEDS ORDERED: *HR* Dextrose 50 % in Water (Syg) 50 ML SYRINGE IVP PRN (10:55)
--- NOTE | 2017-05-07 11:53 | Nephrology Progress Note ---
Date of Encounter: 05/07/17 Time of Encounter: 11:51 - Assessment and Plan (1) End stage renal disease on dialysis Current Visit: Yes Status: Chronic HD MWF. She seems to be tolerating HD well via a right IJ tunneled catheter. Will continue HD per home prescription and as needed. Renal dose medications. Renal diet. (2) UTI (urinary tract infection) Current Visit: No Status: Acute Patient on vancomycin and cefepime. Management per primary team. Qualifiers: Urinary tract infection type: site unspecified Hematuria presence: with hematuria Qualified Code(s): N39.0 - Urinary tract infection, site not specified; R31.9 - Hematuria, unspecified (3) Anemia Current Visit: Yes Status: Acute iron stores sufficient. Aranesp started. Monitor for bleeding. Qualifiers: Qualified Code(s): D64.9 - Anemia, unspecified (4) Metabolic encephalopathy Current Visit: Yes Status: Acute Attributed to UTI. Improving, but not consistently oriented. likely has baseline dementia. Subjective Principal diagnosis: ESRD on dialysis, AMS Interval history: Patient seen. She is more verbal and alert than she has been. She has no complaints. her is at her bedside. She still has confusion. Objective - Vital Signs Vital signs: Vital Signs Temp Pulse Resp BP Pulse Ox 05/07/17 11:45 98.2 F 05/07/17 10:00 112 12 97/36 98 05/07/17 09:00 114 14 91 05/07/17 08:00 114 12 104/53 97 05/07/17 07:53 98.4 F 05/07/17 07:30 104 05/07/17 07:00 107 14 107/46 93 05/07/17 06:00 108 16 127/54 94 05/07/17 05:30 105 18 131/74 98 05/07/17 04:00 96 12 102/39 100 05/07/17 03:00 97 10 95/57 100 05/07/17 02:00 90 12 99/44 100 05/07/17 01:00 90 10 99/50 100 05/07/17 00:00 112 13 110/53 100 05/06/17 23:00 101 12 83/67 100 05/06/17 22:00 105 12 101/49 100 05/06/17 21:30 108 14 97/45 100 05/06/17 20:30 120 19 112/48 100 05/06/17 19:30 99.0 F 126 18 109/60 100 05/06/17 18:28 124 16 124/72 90 05/06/17 17:11 120 16 107/64 93 05/06/17 15:58 99.0 F 05/06/17 15:28 114 16 92/50 93 05/06/17 14:35 111 16 90/60 91 05/06/17 13:33 111 16 102/46 90 05/06/17 12:37 125 16 129/72 91 Intake and Output 05/06/17 05/07/17 05/07/17 23:59 07:59 15:59 Intake Total 400 / 400 0 / 0 120 / 120 Output Total 0 / 0 0 / 0 Balance 400 / 400 0 / 0 120 / 120 Intake: IV Fluids 100 / 100 Maxipime 500 MG In 100 / 100 Dextrose 5% 100 ML @ 200 mls/hr IVPB Q24H [facility] Rx#: [id number] Oral 300 / 300 0 / 0 120 / 120 Output: Urine 0 / 0 0 / 0 Other: Meal Breakfast Percent of Meal Consumed 100% Stool Size Copious Small Smear Stool Consistency loose loose loose Stool Color Brown Brown Brown Yellow # Bowel Movements 1 1 1 Blood Glucose* 174 159 291 - General Appearance General appearance: Present: well-developed, well-nourished, obese EENT: Present: ATNC Neck: Present: supple Respiratory: Present: clear Cardiology: Present: regular rate Dialysis Vascular Access: Venous Catheter Gastrointestinal: Present: obese Neurologic: Present: confused - Lab 05/06/17 05:24 05/06/17 05:24 Most recent lab results ABG pH 7.36 pH Units (7.32-7.45) 05/03/17 20:00 ABG pCO2 37 mmHg (35-45) 05/03/17 20:00 ABG pO2 78 mmHg (85-104) L 05/03/17 20:00 ABG HCO3 20.9 mEQ/L (21-27) L 05/03/17 20:00 ABG O2 Saturation 95 % (95-98) 05/03/17 20:00 Calcium 9.7 mg/dL (8.6-10.8) 05/06/17 05:24 Magnesium 2.0 mg/dL (1.6-2.6) 05/02/17 04:14 Phosphorus 5.3 mg/dL (2.3-4.7) H 05/04/17 05:23 Consult Discharge Plan - Plan Referrals: NO,PCP [Primary Care Provider] - (patient will like go to ECF)
--- NOTE | 2017-05-07 12:20 | Pulmonology Progress Note ---
Date of Encounter: 05/07/17 Time of Encounter: 09:00 Assessment and Plan (1) Metabolic encephalopathy Current Visit: Yes Status: Acute Neuro: Metabolic encephalopathy now nearly resolved. Suspect this is due to large dose of outpatient Neurontin in the setting of HD dependence. Unlikely related to acute infection or primary neurologic disorder. Agree with nephrology the patient may have mild underlying dementia. Cardiovascular: Atrial fibrillation with rate control. Some blood pressure lability is been experiencing overall has been stable. Continue with oral droxidopa. Pulmonary: No acute issues. Nephro: ESRD with HD dependence. No acute metabolic arrangements at this time. Resume HD on regular schedule tomorrow. GI: Tolerating oral nutrition well. ID: Sterile pyuria on admission. Patient likely remains therapeutic on back due to decreased creatinine clearance. No plan for further dosing. Cefepime ordered by outpatient ID specialist for suspected stump soft tissue infection versus osteomyelitis. Dosing adjusted yesterday for hemodialysis. HO: Chronic anemia. Stable. Endocrine: Type 2 diabetes. Continuing with insulin regimen to reflect outpatient therapy. MSK: History of right lower leg amputation. Continue to reposition patient to reduce risk of skin breakdown. Disposition: Transfer to internal medicine. Critical care time 40 minutes (2) CHF (congestive heart failure) Current Visit: Yes Status: Chronic Qualifiers: Congestive heart failure type: unspecified congestive heart failure type Congestive heart failure chronicity: acute on chronic Qualified Code(s): I50.9 - Heart failure, unspecified (3) End stage renal disease on dialysis Current Visit: Yes Status: Chronic (4) Atrial fibrillation Current Visit: Yes Status: Chronic Qualifiers: Atrial fibrillation type: chronic Qualified Code(s): I48.2 - Chronic atrial fibrillation (5) Type 2 diabetes mellitus Current Visit: No Status: Chronic Qualifiers: Diabetes mellitus complication status: with kidney complications Diabetes mellitus complication detail: with chronic kidney disease Diabetes mellitus assisted insulin use: with intermediate designer use Chronic kidney disease stage: on chronic dialysis Qualified Code(s): E11.22 - Type 2 diabetes mellitus with diabetic chronic kidney disease; N18.6 - End stage renal disease; Z79.4 - nursing home (current) use of insulin; Z99.2 - Dependence on renal dialysis Subjective Principal diagnosis: ESRD on dialysis, AMS Interval history: 76-year-old female was transferred to the ICU for hypotension and altered mental status on internal medicine service. Hypertension was improved as has altered mentation. Over past 24 hours patient continued to show improvement but still remains intermittently disoriented and mildly confused. Otherwise reports feeling well this morning without new complaints. Objective PUL Vital signs: Last Vital Signs Temp 98.2 F 05/07/17 11:45 Pulse 122 05/07/17 12:00 Resp 14 05/07/17 12:00 BP 97/36 05/07/17 10:00 Pulse Ox 96 05/07/17 12:00 General appearance: no acute distress Eyes: nonicteric Neck: supple Effort: normal Auscultation: bilateral: clear Cardiovascular: irregular rhythm Gastrointestinal: normoactive bowel sounds, soft Extremities: cyanosis, other (Right lower leg amputation) normal mental status (Slight confusion) mood appropriate Results - Laboratory Findings CBC and BMP: 05/06/17 05:24 05/06/17 05:24 ABG ABG pH 7.36 pH Units (7.32-7.45) 05/03/17 20:00 ABG pCO2 37 mmHg (35-45) 05/03/17 20:00 ABG pO2 78 mmHg (85-104) L 05/03/17 20:00 ABG O2 Saturation 95 % (95-98) 05/03/17 20:00 Abnormal lab findings: Abnormal lab results RBC 3.04 M/mcL (3.82-4.97) L 05/06/17 05:24 Hgb 9.3 g/dL (11.5-15.4) L 05/06/17 05:24 Hct 31.1 % (35.3-44.9) L 05/06/17 05:24 MCV 102.3 fL (83.0-100.0) H 05/06/17 05:24 MCHC 29.9 g/dL (31.6-35.5) L 05/06/17 05:24 RDW 16.9 % (11.5-14.5) H 05/06/17 05:24 ABG pO2 78 mmHg (85-104) L 05/03/17 20:00 ABG HCO3 20.9 mEQ/L (21-27) L 05/03/17 20:00 ABG Base Excess -4.1 mEq/L (-2.0 to 3.0) L 05/03/17 20:00 Sodium 134 mEq/L (136-145) L 05/06/17 05:24 Potassium 4.8 mEq/L (3.5-4.5) H 05/06/17 05:24 Chloride 95 mEq/L (98-109) L 05/06/17 05:24 BUN 30 mg/dL (7-20) H 05/06/17 05:24 Creatinine 5.12 mg/dL (0.57-1.11) H 05/06/17 05:24 Est GFR ( Amer) 10 (> 60) L 05/06/17 05:24 Est GFR (Non-Af Amer) 8 (> 60) L 05/06/17 05:24 Glucose 156 mg/dL (70-99) H 05/06/17 05:24 POC Glucose 291 (58-89) H 05/07/17 11:24 Phosphorus 5.3 mg/dL (2.3-4.7) H 05/04/17 05:23 Transferrin 145 mg/dL (180-382) L 05/04/17 05:23 Ferritin 2371 ng/ml (5-204) H 05/04/17 05:23 Troponin I 0.04 ng/mL (0-0.03) H* 05/02/17 01:01 Vancomycin Trough 26.3 mcg/mL (10-20) H* 05/05/17 04:48 - Clinical Findings Intake & Output: Intake & Output 05/06/17 05/07/17 05/07/17 23:59 07:59 15:59 Intake Total 400 / 400 0 / 0 120 / 120 Output Total 0 / 0 0 / 0 Balance 400 / 400 0 / 0 120 / 120 Consult Discharge Plan - Plan Referrals: NO,PCP [Primary Care Provider] - (patient will like go to F)
[2017-05-07] MEDS ORDERED: Cefepime HCl 500 MG in D5% in Water 100 ML IVPB SCH (16:00)
[2017-05-07] MEDS: NOVOLOG MIX 70/30 SQ SCH (18:22)
[2017-05-08] MEDS: DROXIDOPA 200 MG PO SCH ×3 (00:42→06:36)
[2017-05-08] MEDS: *HR* Heparin 5,000 UNIT/ML VIAL SQ SCH (06:35)
[2017-05-08] MEDS ORDERED: *HR* Heparin 10,000 UNIT/10 ML VIAL IV PRN (07:49)
[2017-05-08] MEDS ORDERED: 0.9 % Sodium Chloride 250 ML IVC PRN (07:49)
[2017-05-08] MEDS ORDERED: 0.9 % Sodium Chloride 1,000 ML PRIME SCH (08:00)
[2017-05-08 09:43] LABS: Hematocrit 32.7 % (35.3-44.9); Hemoglobin 9.7 g/dL (11.5-15.4); Mean Corpuscular HGB Conc 29.7 g/dL (31.6-35.5); Mean Corpuscular Hemoglobin 29.8 pg (28.0-33.3); Mean Corpuscular Volume 100.3 fL (83.0-100.0); Mean Platelet Volume 11.6 fL (9.4-12.4); Platelet Count 148 K/mcL (140-400); Red Blood Count 3.26 M/mcL (3.82-4.97); Red Cell Distribution Width 16.2 % (11.5-14.5)
[2017-05-08 10:00] LABS: Calcium 9.2 mg/dL (8.6-10.8)
[2017-05-08] MEDS: NOVOLOG MIX 70/30 SQ SCH (10:21)
[2017-05-08] MEDS ORDERED: *HR* HYDROcodone/Acet 5/325 mg TABLET PO PRN (10:32)
--- NOTE | 2017-05-08 10:46 | Nephrology Progress Note ---
Date of Encounter: 05/08/17 Time of Encounter: 10:44 - Assessment and Plan (1) End stage renal disease on dialysis Current Visit: Yes Status: Chronic HD MWF. She seems to be tolerating HD well via a right IJ tunneled catheter. Will continue HD per home prescription and as needed. Renal dose medications. Renal diet. (2) UTI (urinary tract infection) Current Visit: No Status: Acute Patient on cefepime. Management per primary team. Qualifiers: Urinary tract infection type: site unspecified Hematuria presence: with hematuria Qualified Code(s): N39.0 - Urinary tract infection, site not specified; R31.9 - Hematuria, unspecified (3) Anemia Current Visit: Yes Status: Acute iron stores sufficient. Aranesp started. Monitor for bleeding. Qualifiers: Qualified Code(s): D64.9 - Anemia, unspecified (4) Metabolic encephalopathy Current Visit: Yes Status: Acute Attributed to UTI. Improving, but not consistently oriented. likely has baseline dementia. Subjective Principal diagnosis: ESRD on dialysis, AMS Interval history: Patient seen. She is more verbal and alert than she has been. She has no complaints. She is seen on dialysis. She still has confusion. Objective - Vital Signs Vital signs: Vital Signs Temp Pulse Resp BP Pulse Ox 05/08/17 10:00 92/56 05/08/17 09:45 99/55 05/08/17 09:35 95/39 05/08/17 09:30 95/42 05/08/17 09:15 99/39 05/08/17 09:00 109/42 05/08/17 08:45 113/39 05/08/17 08:30 102/54 05/08/17 08:15 98.2 F 20 108/39 05/08/17 08:04 97 05/08/17 07:20 97.8 F 107 16 103/85 97 05/08/17 04:58 98.4 F 108 16 101/65 98 05/08/17 00:33 99.0 F 112 16 108/64 100 05/07/17 21:30 100 05/07/17 19:55 98.7 F 120 16 101/48 100 05/07/17 16:28 109 05/07/17 16:12 97.4 F L 121 16 91/51 100 05/07/17 13:30 113 05/07/17 12:00 122 14 96 05/07/17 11:45 98.2 F Intake and Output 05/07/17 05/08/17 05/08/17 23:59 07:59 15:59 Intake Total 130 / 130 0 / 0 600 / 600 Output Total 0 / 0 Balance 130 / 130 0 / 0 600 / 600 Intake: IV Fluids 100 / 100 Maxipime 500 MG In 100 / 100 Dextrose 5% 100 ML @ 200 mls/hr IVPB Q24H [facility] Rx#: [id number] Oral 30 / 30 0 / 0 0 / 0 Intake, Rinseback and 600 / 600 Flushes Output: Urine 0 / 0 Other: Meal Breakfast Percent of Meal Consumed 75% Stool Size Small Stool Consistency loose Stool Color Brown # Bowel Movements 1 Weight 102.2 kg 102.2 kg Blood Glucose* 302 147 Hemodialysis Net Fluid 1593 Removed (mL) Patient Weight 05/08/17 23:59 Weight 102.2 kg - General Appearance General appearance: Present: well-developed, well-nourished Neck: Present: supple Cardiology: Present: no edema Dialysis Vascular Access: Venous Catheter Integumentary: Present: warm and dry Neurologic: Present: confused Additional Comments: alert and talkative. - Lab 05/08/17 09:28 05/08/17 09:28 Most recent lab results ABG pH 7.36 pH Units (7.32-7.45) 05/03/17 20:00 ABG pCO2 37 mmHg (35-45) 05/03/17 20:00 ABG pO2 78 mmHg (85-104) L 05/03/17 20:00 ABG HCO3 20.9 mEQ/L (21-27) L 05/03/17 20:00 ABG O2 Saturation 95 % (95-98) 05/03/17 20:00 Calcium 9.2 mg/dL (8.6-10.8) 05/08/17 09:28 Magnesium 2.0 mg/dL (1.6-2.6) 05/02/17 04:14 Phosphorus 5.3 mg/dL (2.3-4.7) H 05/04/17 05:23 Consult Discharge Plan - Plan Referrals: NO,PCP [Primary Care Provider] - (patient will like go to F)
[2017-05-08 11:49] VITALS: BP 103/62
[2017-05-08] MEDS ORDERED: Cefepime HCl 2,000 MG in D5% in Water (Mini-Bag+) 100 ML IVPB SCH (14:00)
--- NOTE | 2017-05-08 14:07 | Discharge Summary ---
Date of Encounter: 05/08/17 Time of Encounter: 13:00 - Discharge Diagnosis (1) UTI (urinary tract infection) Priority: Primary Status: Acute Qualifiers: Urinary tract infection type: site unspecified Hematuria presence: with hematuria Qualified Code(s): N39.0 - Urinary tract infection, site not specified; R31.9 - Hematuria, unspecified (2) Atrial fibrillation Priority: Secondary Status: Chronic Qualifiers: Atrial fibrillation type: chronic Qualified Code(s): I48.2 - Chronic atrial fibrillation (3) Metabolic encephalopathy Priority: Primary Status: Acute (4) DVT prophylaxis Priority: Secondary Status: Acute (5) End stage renal disease on dialysis Priority: Secondary Status: Chronic - Discharge Medications Prescriptions: Gabapentin [Neurontin] 200 mg PO DAILY #30 capsule Metoprolol [Lopressor] 12.5 mg PO BID #60 tablet Home Medications: Aspirin 325 mg PO DAILY 08/17/15 [History] Cephalexin [Keflex] 250 mg PO DAILY 08/17/15 [History] Clopidogrel [Plavix] 75 mg PO DAILY 08/17/15 [History] Pravastatin Sodium [Pravachol] 40 mg PO HS 08/17/15 [History] Buspirone HCl [Buspar] 10 mg PO BID 05/01/17 [History] Cefepime HCl/Dextrose, Iso-Osm [Cefepime 2 gm Injection] 2 gm IV DAILY 05/01/17 [History] Cholecalciferol (D-3) [Vitamin D] 2,000 unit PO DAILY 05/01/17 [History] Droxidopa [Northera] 600 mg PO TID 05/01/17 [History] FentaNYL PATCH [Duragesic] 12 mcg TD Q72H 05/01/17 [History] FentaNYL PATCH [Duragesic] 25 mcg TD Q72H 05/01/17 [History] HYDROcodone/Acet 5/325 mg [[place] 5-325 mg] 1 tab PO TID PRN 05/01/17 [History] Insulin ASPART [NovoLOG] 3 - 12 unit SQ TIDWM 05/01/17 [History] Insulin Aspart Prot/Insuln Asp [Novolog Mix 70-30 Vial] 30 - 40 unit SQ QAM AND QHS 05/01/17 [History] L. Acidophilus/Pectin, [place] [Acidophilus Probiotic Capsule] 1 each PO DAILY [History] Pantoprazole Sodium [Protonix] 40 mg PO DAILY 05/01/17 [History] Zinc Sulfate [Orazinc] 110 mg PO DAILY 05/01/17 [History] Gabapentin [Neurontin] 200 mg PO DAILY #30 capsule 05/08/17 [Rx] Metoprolol [Lopressor] 12.5 mg PO BID #60 tablet 05/08/17 [Rx] Allergies/Adverse Reactions: Allergies doxycycline Allergy (Verified 05/01/17 09:06) Hives levofloxacin [From Levaquin] Allergy (Verified 05/01/17 09:06) Swelling of Lip/Tongue/Throat prednisone Allergy (Verified 05/01/17 09:06) See Comments made her cold/ and made her sweat acetaminophen [From Percocet] Adverse Reaction (Verified 04/17/17 08:32) Vomiting azithromycin [From Zithromax Z-Henrry] Adverse Reaction (Verified 05/01/17 09:06) Vomiting Oxycodone [From Percocet] Adverse Reaction (Verified 05/01/17 09:06) Vomiting phenazopyridine [From Pyridium] Adverse Reaction (Verified 05/01/17 09:06) Rash Knpgyoc-Kif-Bnx Reductase Inhibitor [Statins] Adverse Reaction (Verified 09:06) Back Pain - Notes to Outpatient Provider 1. Pt was added metoprolol 12.5 mg bid because HR at high side, please follow HR and BP. 2. Pt's gabapentin dose has been decreased to 200mg po daily according to her renal function and recent hx of AMS. Date of admission: 05/01/17 16:01 Primary care physician: PCP NO Consults: 05/01/17 16:23 Consult to Nephrology [CONS] Routine Consulting Provider: Kidney [facility]/ROBBY/CRIS/BRI Reason for Consult: ESRD Time Notified: 16:23 Call Completed: Yes 05/01/17 18:16 Consult to Wound Care [CONS] Routine Reason for Consult: stage 2 ulcer to sacrum Time Notified: 18:16 Call Completed: No 05/03/17 11:32 Consult to Neurology [CONS] Routine Consulting Provider: [facility] Reason for Consult: AMS Call Completed: Yes 05/03/17 16:19 Consult to Interpret Exam [CONS] Routine Consulting Provider: Nolan Diallo Consult to Interpret Exam: Interpret EEG 05/08/17 08:00 Consult to Dialysis [CONS] ONCE Discharging clinician: Thomas Ramirez Anticipated date of discharge: 05/08/17 - Patient Status Disposition: Home Health Service Condition: Fair Functional capacity at discharge: wheelchair bound Overall status at discharge: patient is back to baseline - Discharge Instructions Follow Up With: NO,PCP [Primary Care Provider] - (patient will like go to ECF) - Diet and Activity Activity: as per physical therapy Diet: diabetic diet, other (Renal diet) Interval History: Ms. Barrientos is a 76 year old female PMH of ESRD AFIB CHF CAD DM GERD HTN MT Information obtained from ho is at bedside dt to patent altered mental state. The patient has been receiving cefepime for a possible infection to R stump incision. She started ATB last . She has had no fever chills , she has had a decrease appetite. This am the states the patient was confused, unaware of surroundings and attempting to get out of the bed . She is unable to walk dt recent amputation. The became concern and called squad. She was taken to to [facility] for evaluation. IN the ED labwork revealed no leukocytosis, BUN 15 creatinine 7.78 bicarb 18. CXR with vascular congestion.Head CT negative Urine obtained which sample was thick white purulent drainage . Urinalysis revealed large amount of blood and leuk esterase. urine sent for culture blood culture obtained , given vancomycin Transferred to this facility for further treatment. Presently the patient is moaning does not respond verbal stimuli. Lung sounds are clear, heart sounds irreg S1S2 no rubs click or gallops noted. Abd soft nontender, R stump with incision well approx, R distal end red, with small amount clear drainage. Hospital course: Ms. Barrientos is a 76 year old female admitted for altered mental status and UTI. Patient was placed on antibiotic. Her mental status does not change even after antibiotic use, neurology consult was called and saw patient, EEG has been done. Still consider delirium due to medical condition. Patient was transferred to ICU for close monitoring. After treatment, her mental status has significantly improved, get back to her baseline. Patient had blood culture and urine culture negative. We will discharge patient back to home and continue home health service which she had previously. I saw and examined patient today, she is awake alert, oriented 3. In no acute distress. Vital signs stable. Patient is already back to her baseline. We will discharge patient home today and she will follow-up with PCP as outpatient. Patient was prescribed Cefepime 2000mg iv daily by ID specialist Dr Duarte in [facility]. This dose is questioned by our pharmacist because pt has ESRD on HD. Our pharmacist contacted Dr. Duarte' Office and was told pt has pseudomonas infection and needs high dose and recommend continue 2000mg iv daily. - Time Spent with Patient Total time spent providing and/or coordinating discharge services: 40 minutes Greater than 30 minutes - Constitutional Vitals: Temp Pulse Resp BP Pulse Ox 97.9 F 128 17 103/62 98 05/08/17 11:48 05/08/17 11:48 05/08/17 11:48 05/08/17 11:48 05/08/17 11:48 General appearance: Present: A&O X 3, no acute distress, answers questions appropriately - Head Head exam: Present: atraumatic, normocephalic - Eye Eye exam: Present: PERRL, conjuntiva pink, sclera anicteric Pupils: Present: PERRL - Neck Neck exam general surgery: Present: supple, trachea midline. Absent: lymphadenopathy - Respiratory Respiratory exam: Present: CTAB. Absent: accessory muscle use, rales, rhonchi, wheezes - Cardiovascular Cardiovascular exam: Present: RRR, +S1, +S2. Absent: diastolic murmur, gallop, rubs, systolic murmur - GI/Abdominal GI/Abdominal exam: Present: normal bowel sounds, soft, no peritoneal signs. Absent: distended, tenderness - Extremities Exam Extremities exam: Present: warm, radial pulses palpable and symetrical. Absent : calf tenderness, cyanotic, pedal edema Additional comments: Right leg s/p BKA - Neurological Exam Neurological exam: Present: CN II-XII intact, oriented X3, no focal deficits. Absent: pronater drift, facial droop, speech deficit - Skin Skin exam: Present: dry, intact
--- NOTE | 2017-05-08 14:36 | Physician Discharge Referral ---
Home Health/Hosp Referral Info Transfer to: Home Health Provider in Charge Post Discharge: PCP - Diagnosis (1) UTI (urinary tract infection) Priority: Primary Status: Acute (2) Atrial fibrillation Priority: Secondary Status: Chronic (3) Metabolic encephalopathy Priority: Primary Status: Acute (4) DVT prophylaxis Priority: Secondary Status: Acute (5) End stage renal disease on dialysis Priority: Secondary Status: Chronic - Respiratory Orders Smoking Cessation: Smoking cessation has been advised. For more information, call the [employer] Quit Line at 9-846-ACCU-NOW. - Dressing/Wound Care Site: Resume previously ordered wound care. - Diet/Nutrition Diet/Nutrition Orders: Renal, No Concentrated Sweets - Services Needed Following services are medically necessary services: Nursing, Home Health Aide, Home Infusion Home Care Orders: Resume home infusion orders as previously ordered: Cefepime 2000mg iv every 24 hours. - Transfer Medications Prescriptions: Gabapentin [Neurontin] 200 mg PO DAILY #30 capsule Metoprolol [Lopressor] 12.5 mg PO BID #60 tablet Home Medications: Aspirin 325 mg PO DAILY 08/17/15 [History] Cephalexin [Keflex] 250 mg PO DAILY 08/17/15 [History] Clopidogrel [Plavix] 75 mg PO DAILY 08/17/15 [History] Pravastatin Sodium [Pravachol] 40 mg PO HS 08/17/15 [History] Buspirone HCl [Buspar] 10 mg PO BID 05/01/17 [History] Cefepime HCl/Dextrose, Iso-Osm [Cefepime 2 gm Injection] 2 gm IV DAILY 05/01/17 [History] Cholecalciferol (D-3) [Vitamin D] 2,000 unit PO DAILY 05/01/17 [History] Droxidopa [Northera] 600 mg PO TID 05/01/17 [History] FentaNYL PATCH [Duragesic] 12 mcg TD Q72H 05/01/17 [History] FentaNYL PATCH [Duragesic] 25 mcg TD Q72H 05/01/17 [History] HYDROcodone/Acet 5/325 mg [[place] 5-325 mg] 1 tab PO TID PRN 05/01/17 [History] Insulin ASPART [NovoLOG] 3 - 12 unit SQ TIDWM 05/01/17 [History] Insulin Aspart Prot/Insuln Asp [Novolog Mix 70-30 Vial] 30 - 40 unit SQ QAM AND QHS 05/01/17 [History] L. Acidophilus/Pectin, [place] [Acidophilus Probiotic Capsule] 1 each PO DAILY [History] Pantoprazole Sodium [Protonix] 40 mg PO DAILY 05/01/17 [History] Zinc Sulfate [Orazinc] 110 mg PO DAILY 05/01/17 [History] Gabapentin [Neurontin] 200 mg PO DAILY #30 capsule 05/08/17 [Rx] Metoprolol [Lopressor] 12.5 mg PO BID #60 tablet 05/08/17 [Rx] Allergies/Adverse Reactions: Allergies doxycycline Allergy (Verified 05/01/17 09:06) Hives levofloxacin [From Levaquin] Allergy (Verified 05/01/17 09:06) Swelling of Lip/Tongue/Throat prednisone Allergy (Verified 05/01/17 09:06) See Comments made her cold/ and made her sweat acetaminophen [From Percocet] Adverse Reaction (Verified 04/17/17 08:32) Vomiting azithromycin [From Zithromax Z-Henrry] Adverse Reaction (Verified 05/01/17 09:06) Vomiting Oxycodone [From Percocet] Adverse Reaction (Verified 05/01/17 09:06) Vomiting phenazopyridine [From Pyridium] Adverse Reaction (Verified 05/01/17 09:06) Rash Snaiehc-Lyo-Bvu Reductase Inhibitor [Statins] Adverse Reaction (Verified 09:06) Back Pain Certification: Further, I certify that my clinical findings support that this patient is homebound (i.e. absences from home require considerable and taxing effort and are for medical reasons or hoahaoism services or infrequently or short duration when for other reasons) because: Homebound Reason: Patient requires assistance of a person or device to safely leave home Attestation: My signature below is to certify that this patient is under my care and that I, or nurse practitioner, or a physician's hospital nursing assistant working with me, has a face-to -face encounter with this patient.
[2017-05-08] MEDS ORDERED: Aminoglycoside Consult 1 EACH MC ONE (15:27)
[2017-05-10] MEDS ORDERED: *HR* FentaNYL PATCH 25 MCG PATCH TD SCH (04:00)
[2017-05-10] MEDS ORDERED: *HR* FentaNYL PATCH 12 MCG PATCH TD SCH (04:00)
== END 2017-05-08 15:28 | disposition home health service (06) | DRG 70 ==
LOC: 2ANU → SUATTDRO 16:01 → ICNU 05-03 17:21 → 2ANU 05-07 14:16
PROVIDERS: ADMIT Internal Medicine; ATTEND Internal Medicine